=== PATIENT | female | born 1965 ===

== ENCOUNTER → 2020-09-08 | Outpatient (CLI) | payer BC ==
--- NOTE | 2020-09-08 09:41 | XR ---
EXAMINATION TYPE: XR chest 2V DATE OF EXAM: 09/08/2020 COMPARISON: NONE HISTORY: Chest pressure for one month TECHNIQUE: Frontal and lateral views of the chest are obtained. FINDINGS: Heart size is within normal limits. Low lung volumes. Elevation of the right hemidiaphragm is asymmetric. No pleural effusion, focal consolidation or pneumothorax. Mild degenerative changes o f thoracic spine. IMPRESSION: 1. No acute pulmonary disease. 2. Asymmetric elevation of right hemidiaphragm.
== END | disposition home or self-care (01) ==
LOC: RADXRMAIN 09:18
PROVIDERS: ATTEND Physician Assistant Medical
DX: R07.9 Chest pain, unspecified (principal)
CPT/HCPCS: 71046

== ENCOUNTER → 2020-10-02 | Outpatient (CLI) | payer BC ==
--- NOTE | 2020-10-02 12:56 | EST ---
EXERCISE STRESS DATE OF SERVICE: October 02, 2020 AGE: 55 SEX: F HT: @@ WT: @@ PROTOCOL: @@ STAGE: @@ DURATION OF EXERCISE: @@ HEART RATE REST: @@ BLOOD PRESSURE REST: @@ MAXIMUM HEART RATE ACHIEVED: @@ MAXIMUM BLOOD PRESSURE: @@ 85% MPHR: @@ 100% MPHR: @@ METS: @@ STRESS DATA: Heart rate is 83, pressure is 185/65 mmHg. Baseline EKG showed sinus mechanism. The patient exercised on the treadmill according to [place] protocol for a total of 4 minutes and achieved 5.6 METS. Max heart rate was 157, which is about 96% of maximum predicted heart rate and maximum blood pressure was 164/54 mmHg. Clinically, the patient did not have any symptoms and the EKG did not show any significant ST or T-wave abnormalities concerning for ischemia. CONCLUSION: 1. Average exercise tolerance. 2. Normal EKG in response to exercise. 3. Please follow up on the Cardiolite portion on a separate report from Radiology Department. MMODL / IJN: [id number] /
--- NOTE | 2020-10-05 09:18 | NM ---
EXAMINATION TYPE: NM stress cardiolite complete DATE OF EXAM: 10/02/2020 COMPARISON: NONE HISTORY: 55-year-old female R07.9, chest pain. TECHNIQUE: After the intravenous administration of 9.7 mCi Tc 99m Sestamibi - Rest images obtained 4 5 minutes post injection. The patient exercised using a JOANA protocol and 1 minute prior to peak e xercise was injected with 25.5 mCi Tc 99m Sestamibi - Stress images obtained 20 minutes post injectio n. FINDINGS: Targeted heart rate (139 BPM) was achieved during performance of the study (157 BPM achieved). Total exercise time 4 minutes. The technologist recorded some dizziness during the exercise stress and PVCs . Review of stress and rest SPECT images demonstrates large perfusion defect along the lateral wall whi ch is more pronounced on the rest images. Some possible reversibility along the mid and basal anterio r wall is not corroborated on the polar maps. Gated analysis shows relatively preserved wall motion w ith an estimated left ventricular ejection fraction of 71 %. TID is calculated at 0.81, within enrico l limits. IMPRESSION: Large fixed defect laterally is larger on rest suggesting extensive attenuation artifact. Clinically correlate to exclude a history of prior infarct. Apparent reversibility along the mid to basal anteri or wall is not corroborated on polar maps and may represent an additional area of attenuation artifac t. Given this limitation, if clinically indicated, further workup can be considered.
== END | disposition home or self-care (01) ==
LOC: RADNMMAIN 09-28 08:12
PROVIDERS: ATTEND Family Medicine
DX: R07.9 Chest pain, unspecified (principal); I10 Essential (primary) hypertension; E11.65 Type 2 diabetes mellitus with hyperglycemia
CPT/HCPCS: 93017; 78452; A9500

== ENCOUNTER 2023-08-26 07:42 | Inpatient (IN) | payer BC, MEDICARE ==
--- NOTE | 2023-08-26 08:09 | ED ---
General Adult HPI - General Chief complaint: Neuro Symptoms/Deficit Stated complaint: left side weakness, confusion Time Seen by Provider: 08/26/23 07:59 Source: patient, RN notes reviewed Mode of arrival: ambulatory Limitations: no limitations - History of Present Illness Initial comments: Patient is a 58-year-old female presenting to the emergency department with concern for confusion and left-sided weakness. Last known well was 9 PM yesterday. Patient did have some difficulty using her timecard at work. Patient has been told her speech is slurred and she does feel this way. Patient feels some left leg and left arm weakness. No history of similar symptoms previously. Symptoms have persisted - Related Data Home Medications Medication Instructions Recorded Confirmed Acetaminophen [Tylenol] 325 mg PO Q4H PRN 11/19/15 11/19/15 Atorvastatin [Lipitor] 20 mg PO Q72H 11/19/15 11/19/15 Empagliflozin/Linagliptin 1 each PO DAILY 11/19/15 11/19/15 [Glyxambi 25 mg-5 mg Tablet] Evening Pandora Oil 500 mg PO DAILY 11/19/15 11/19/15 Gabapentin [Neurontin] 100 - 200 mg PO AC-BRKFST 11/19/15 11/19/15 Gabapentin [Neurontin] 200 - 300 mg PO HS 11/19/15 11/19/15 Ibuprofen [Motrin] 200 - 400 mg PO Q6HR PRN 11/19/15 11/19/15 Losartan [Cozaar] 100 mg PO DAILY 11/19/15 11/19/15 Omeprazole 20 mg PO BID 11/19/15 11/19/15 Ubidecarenone [Co Q-10] 100 mg PO DAILY 11/19/15 11/19/15 Venlafaxine HCl [Effexor] 150 mg PO BID 11/19/15 11/19/15 Allergies Allergy/AdvReac Type Severity Reaction Status Date / Time No Known Allergies Allergy Verified 11/19/15 15:46 Review of Systems ROS Statement: Those systems with pertinent positive or pertinent negative responses have been documented in the HPI. ROS Other: All systems not noted in ROS Statement are negative. Constitutional: Denies: fever Eyes: Denies: eye pain ENT: Denies: ear pain Respiratory: Denies: cough Cardiovascular: Denies: chest pain Endocrine: Denies: fatigue Gastrointestinal: Denies: abdominal pain Genitourinary: Denies: dysuria Neurological: Reports: as per HPI, weakness, confusion. Denies: headache Past Medical History Past Medical History: Diabetes Mellitus, GERD/Reflux, Hyperlipidemia, Hypertension, Sleep Apnea/CPAP/BIPAP Additional Past Medical History / Comment(s): urinary stress incontinence History of Any Multi-Drug Resistant Organisms: None Reported Past Surgical History: Appendectomy, Heart Catheterization, Orthopedic Surgery, Tonsillectomy Additional Past Surgical History / Comment(s): rt shoulder arthroscopic, rt foot surgery for plantar facitis Past Anesthesia/Blood Transfusion Reactions: Previous Problems w/ Anesthesia Additional Past Anesthesia/Blood Transfusion Reaction / Comment(s): slow to wake up Past Psychological History: Anxiety, Depression Past Alcohol Use History: Daily Past Drug Use History: None Reported - Past Family History Mother Family Medical History: Coronary Artery Disease (CAD) Brother(s) Family Medical History: Cancer, Coronary Artery Disease (CAD) Additional Family Medical History / Comment(s): bone cancer General Exam Limitations: no limitations General appearance: alert, in no apparent distress Head exam: Present: atraumatic Eye exam: Present: normal appearance, PERRL, EOMI ENT exam: Present: normal oropharynx Neck exam: Present: normal inspection Respiratory exam: Present: normal lung sounds bilaterally Cardiovascular Exam: Present: regular rate, normal rhythm GI/Abdominal exam: Present: soft. Absent: tenderness Extremities exam: Present: normal inspection Neurological exam: Present: alert, oriented X3, CN II-XII intact Expanded Neurological exam: Present: protecting the airway, other (Questionable mild slurred speech) Patient oriented to: Present: person, place, time Cranial nerves: EOM's Intact: Normal, Facial Sensation: Normal Cerebellar function: Finger to Nose: Normal, Heel to Hanks: Abnormal Left Sensory exam: Upper Extremity Light Touch: Normal, Lower Extremity Light Touch: Normal Motor strength exam: RUE: 5, LUE: 5, RLE: 5, LLE: 5 Eye Response: (4) open spontaneously Motor Response: (6) obeys commands Verbal Response: (5) oriented Psychiatric exam: Present: normal affect, normal mood Skin exam: Present: normal color Course Vital Signs 08/26/23 07:53 Temperature 97.6 F Pulse Rate 83 Respiratory 18 Rate Blood Pressure 122/52 O2 Sat by Pulse 98 Oximetry - Reevaluation(s) Reevaluation #1: 08/26/23 08:18 Case was discussed with Dr. Teresa who agrees with plan of care and agrees patient is not a tPA candidate. EKG Findings - EKG Results: EKG: interpreted by ERMD, sinus rhythm, normal axis, normal QRS, normal ST/T Medical Decision Making - Medical Decision Making Not considered a tPA candidate secondary to onset of symptoms, last known well is greater than 4.5 hours. Risks are felt to outweigh the benefits Was pt. sent in by a medical professional or institution (, PA, LEAD JAVA J2EE DEVELOPER, urgent care, hospital, or assisted...) When possible be specific @ -No Did you speak to anyone other than the patient for history (EMS, parent, family, police, friend...)? What history was obtained from this source @ -Family is present and helps confirm slurred speech Did you review nursing and triage notes (agree or disagree)? Why? @ -I reviewed and agree with nursing and triage notes Were old charts reviewed (outside hosp., previous admission, EMS record, old EKG, old radiological studies, urgent care reports/EKG's, assisted records)? Report findings @ -No old charts were reviewed Differential Diagnosis (chest pain, altered mental status, abdominal pain women, abdominal pain men, vaginal bleeding, weakness, fever, dyspnea, syncope, headache, dizziness, GI bleed, back pain, seizure, CVA, palpatations, mental health, musculoskeletal)? @ -Differential Weakness: Hypoglycemia, shock, sepsis, hyponatremia, anemia, infection, AK, ETOH, adverse medicine reaction, overdose, stroke, this is not meant to be an all-inclusive list. EKG interpreted by me (3pts min.). @ -As above X-rays interpreted by me (1pt min.). @ -Chest x-ray shows no acute process CT interpreted by me (1pt min.). @ -CT scan of the brain without acute abnormality U/S interpreted by me (1pt. min.). @ -None done What testing was considered but not performed or refused? (CT, X-rays, U/S, labs)? Why? @ -None What meds were considered but not given or refused? Why? @ -See above Did you discuss the management of the patient with other professionals (professionals i.e. , PA, LEAD JAVA J2EE DEVELOPER, lab, RT, psych nurse, social services designee, divorce lawyer, teacher, armored vehicle officer, case management manager)? Give summary @ -Case was discussed with Dr. Tavarez who will admit covering Dr. Seals Was smoking cessation discussed for >3mins.? @ -No Was critical care preformed (if so, how long)? @ -No Were there social determinants of health that impacted care today? How? (Homelessness, low income, unemployed, alcoholism, drug addiction, transportation, low edu. Level, literacy, decrease access to med. care, [facility], rehab)? @ -No Was there de-escalation of care discussed even if they declined (Discuss DNR or withdrawal of care, Hospice)? DNR status @ -No What co-morbidities impacted this encounter? (DM, HTN, Smoking, COPD, CAD, Cancer, CVA, ARF, Chemo, Hep., AIDS, mental health diagnosis, sleep apnea, morbid obesity)? @ -None Was patient admitted / discharged? Hospital course, mention meds given and route, prescriptions, significant lab abnormalities, going to OR and other pertinent info. @ -Patient presents with mild stroke symptoms. Patient has mild slurred speech and coordination problems with her left leg. CT scan unremarkable. Patient will be admitted with neuro consult. Admission orders written. Undiagnosed new problem with uncertain prognosis? @ -No Drug Therapy requiring intensive monitoring for toxicity (Heparin, Nitro, Insulin, Cardizem)? @ -No Were any procedures done? @ -No Diagnosis/symptom? @ -CVA Acute, or Chronic, or Acute on Chronic? @ -Acute Uncomplicated (without systemic symptoms) or Complicated (systemic symptoms)? @ -Default Side effects of treatment? @ -No Exacerbation, Progression, or Severe Exacerbation? @ -No Poses a threat to life or bodily function? How? (Chest pain, USA, AK, pneumonia, PE, COPD, DKA, ARF, appy, cholecystitis, CVA, Diverticulitis, Homicidal, Suicidal, threat to staff... and all critical care pts) @ -Threat to neurological function and life - Lab Data Result diagrams: 08/26/23 08:15 08/26/23 08:15 Lab Results 08/26/23 08/26/23 08/26/23 Range/Units 08:13 08:15 08:15 WBC 11.6 H (3.8-10.6) k/uL RBC 4.81 (3.80-5.40) m/uL Hgb 13.6 (11.4-16.0) gm/dL Hct 43.0 (34.0-46.0) % MCV 89.4 (80.0-100.0) fL MCH 28.3 (25.0-35.0) pg MCHC 31.7 (31.0-37.0) g/dL RDW 12.7 (11.5-15.5) % Plt Count 598 H (150-450) k/uL MPV 8.0 Neutrophils % 73 % Lymphocytes % 18 % Monocytes % 5 % Eosinophils % 1 % Basophils % 1 % Neutrophils # 8.4 H (1.3-7.7) k/uL Lymphocytes # 2.1 (1.0-4.8) k/uL Monocytes # 0.6 (0-1.0) k/uL Eosinophils # 0.1 (0-0.7) k/uL Basophils # 0.1 (0-0.2) k/uL PT 11.0 (10.0-12.5) sec INR 1.0 (<1.2) APTT 28.2 (22.0-30.0) sec Sodium (137-145) mmol/L Potassium (3.5-5.1) mmol/L Chloride (98-107) mmol/L Carbon Dioxide (22-30) mmol/L Anion Gap mmol/L BUN (7-17) mg/dL Creatinine (0.52-1.04) mg/dL Est GFR (CKD-EPI)AfAm (>60 ml/min/1.73 sqM) Est GFR (CKD-EPI)NonAf (>60 ml/min/1.73 sqM) Glucose (74-99) mg/dL POC Glucose (mg/dL) 279 H (70-110) mg/dL POC Glu Roof [employer] ID Soniya, Noy Calcium (8.4-10.2) mg/dL Total Bilirubin (0.2-1.3) mg/dL AST (14-36) U/L ALT (4-34) U/L Alkaline Phosphatase (38-126) U/L Creatine Kinase (30-135) U/L Total Protein (6.3-8.2) g/dL Albumin (3.5-5.0) g/dL 08/26/23 Range/Units 08:15 WBC (3.8-10.6) k/uL RBC (3.80-5.40) m/uL Hgb (11.4-16.0) gm/dL Hct (34.0-46.0) % MCV (80.0-100.0) fL MCH (25.0-35.0) pg MCHC (31.0-37.0) g/dL RDW (11.5-15.5) % Plt Count (150-450) k/uL MPV Neutrophils % % Lymphocytes % % Monocytes % % Eosinophils % % Basophils % % Neutrophils # (1.3-7.7) k/uL Lymphocytes # (1.0-4.8) k/uL Monocytes # (0-1.0) k/uL Eosinophils # (0-0.7) k/uL Basophils # (0-0.2) k/uL PT (10.0-12.5) sec INR (<1.2) APTT (22.0-30.0) sec Sodium 127 L (137-145) mmol/L Potassium 5.2 H (3.5-5.1) mmol/L Chloride 93 L (98-107) mmol/L Carbon Dioxide 25 (22-30) mmol/L Anion Gap 9 mmol/L BUN 21 H (7-17) mg/dL Creatinine 2.65 H (0.52-1.04) mg/dL Est GFR (CKD-EPI)AfAm 22 (>60 ml/min/1.73 sqM) Est GFR (CKD-EPI)NonAf 19 (>60 ml/min/1.73 sqM) Glucose 260 H (74-99) mg/dL POC Glucose (mg/dL) (70-110) mg/dL POC Glu [employer] ID Calcium 9.0 (8.4-10.2) mg/dL Total Bilirubin 0.5 (0.2-1.3) mg/dL AST 42 H (14-36) U/L ALT 45 H (4-34) U/L Alkaline Phosphatase 195 H (38-126) U/L Creatine Kinase 93 (30-135) U/L Total Protein 6.7 (6.3-8.2) g/dL Albumin 3.6 (3.5-5.0) g/dL Disposition Clinical Impression: Cerebrovascular accident (CVA) Disposition: ADMITTED IP TO THIS HOSP Is patient prescribed a controlled substance at d/c from ED?: No Referrals: Jeff Seals MD [Primary Care Provider] - 1-2 days Time of Disposition: 08:57
[2023-08-26 08:14] LABS: Glucose,Whole Blood 279 mg/dL (70-110)
--- NOTE | 2023-08-26 08:36 | CT ---
EXAMINATION TYPE: CT brain wo con DATE OF EXAM: 08/26/2023 COMPARISON: None INDICATION: garima leg weakness, dizziness and left arm and eye blurred vision. DLP: 1129.6 mGycm, Automated exposure control for dose reduction was used. CONTRAST: None CT of the brain is performed utilizing 3 mm thick sections through the posterior fossa and 3 mm thick sections through the remaining calvarium. Study is performed within 24 hours of arrival to the hosp ital. No abnormal hyperdensity is present to suggest an acute intracranial hemorrhage. No mass lesion is evident. No acute infarcts are evident. Ventricles and sulci are appropriate for the patient age. Paranasal sinuses and mastoid air cells within the [id number] are clear. IMPRESSION: 1. No acute intracranial process. Follow-up MRI can be performed as clinically indicated
[2023-08-26 08:41] LABS: ALT 45 U/L (4-34); AST 42 U/L (14-36); African American GFR (CKD) 22 (>60 ml/min/1.73 sqM); Albumin 3.6 g/dL (3.5-5.0); Alkaline Phosphatase 195 U/L (38-126); Anion Gap 9 mmol/L; Blood Urea Nitrogen 21 mg/dL (7-17); Carbon Dioxide 25 mmol/L (22-30); Chloride 93 mmol/L (98-107); Creatine Kinase 93 U/L (30-135); Glucose 260 mg/dL (74-99); Non-African American GFR(CKD) 19 (>60 ml/min/1.73 sqM); Potassium 5.2 mmol/L (3.5-5.1); Sodium 127 mmol/L (137-145); Total Bilirubin 0.5 mg/dL (0.2-1.3); Total Protein 6.7 g/dL (6.3-8.2)
--- NOTE | 2023-08-26 08:43 | XR ---
EXAMINATION TYPE: XR chest 2V DATE OF EXAM: 08/26/2023 COMPARISON: 09/08/2020 INDICATION: Altered mental status TECHNIQUE: Frontal and lateral views of the chest are obtained. FINDINGS: The heart size is normal. The pulmonary vasculature is normal. The lungs are clear. IMPRESSION: 1. No acute pulmonary process.
[2023-08-26 08:44] LABS: Basophils # (A) 0.1 k/uL (0-0.2); Basophils % (A) 1 %; Eosinophils # (A) 0.1 k/uL (0-0.7); Eosinophils % (A) 1 %; HGB 13.6 gm/dL (11.4-16.0); Lymphocytes # (A) 2.1 k/uL (1.0-4.8); Lymphocytes % (A) 18 %; MCH 28.3 pg (25.0-35.0); MCHC 31.7 g/dL (31.0-37.0); MCV 89.4 fL (80.0-100.0); Monocytes # (A) 0.6 k/uL (0-1.0); Monocytes % (A) 5 %; Neutrophils # (A) 8.4 k/uL (1.3-7.7); Neutrophils % (A) 73 %; Platelet Count 598 k/uL (150-450); RBC 4.81 m/uL (3.80-5.40); RDW 12.7 % (11.5-15.5); WBC 11.6 k/uL (3.8-10.6)
--- NOTE | 2023-08-26 08:50 | CT ---
EXAMINATION TYPE: CT angio head neck DATE OF EXAM: 08/26/2023 HISTORY: garima leg weakness, dizziness and left arm and eye blurred vision. COMPARISON: None CT DLP: 630.4 mGycm. Automated Exposure Control for Dose Reduction was Utilized. TECHNIQUE: CTA scan of the neck is performed with IV Contrast, patient injected with 65ml mL of Isov ue 370, axial images are obtained, coronal and sagittal reformatted images are reviewed. Three-D leodan nstructed images are created on an independent workstation and reviewed. Source images are reviewed. FINDINGS: Carotid/Vascular Structures: There is a 3 vessel arch. Common carotid arteries bifurcate into internal and external carotid arteries without significant blossom w limiting stenosis. Vertebral arteries are codominant. Internal carotid arteries and vertebral arteries are patent to the skull base. Cervical of [place]: Vertebral basilar system appears normal. Posterior cerebral vasculature is unrema rkable. Internal carotid arteries bifurcate normally into A1 and M1 segments. A2 segments are normal. The anterior communicating artery is patent. The right posterior communicating artery is patent. The left posterior communicating artery is small but patent. IMPRESSION: 1. No flow-limiting stenosis bilateral carotid bifurcations. 2. Normal [place] of [place] NASCET criteria was used in interpretation of this exam?
[2023-08-26 08:51] LABS: Partial Thromboplastin Time 28.2 sec (22.0-30.0)
[2023-08-26] MEDS: SODIUM CHLORIDE 0.9% 1,000 ML IV STA (08:59)
[2023-08-26] MEDS: ASPIRIN 325 MG TAB PO STA (09:06)
[2023-08-26] MEDS: SODIUM CHLORIDE 0.9% 1,000 ML IV SCH (09:06)
[2023-08-26] MEDS ORDERED: DEXTROSE 50% SYRINGE 50 ML IVP PRN ×2 (09:52)
--- NOTE | 2023-08-26 10:28 | P.HPIM ---
History of Present Illness H&P Date: 08/26/23 History of present illness; patient is a 58-year-old lady with past medical history significant for hypertension, hyperlipidemia, diabetes mellitus presented to the ER with complaint of confusion and left-sided weakness. According to EMR, last well-known was yesterday evening at 9 PM. 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 Patient was having weakness more pronounced on the left side. Patient also had a hard time saying words. Patient went to work this morning and people then noted that the patient was slurring her speech. Patient also was having weakness of left leg and arm. There was no complaint of facial droop. Patient was also having difficulty in using her timecard at work. Patient was also acting confused. There was no complaint of headache. Denies any palpitation. There was no complaint of any syncopal episode. No complaint of facial droop. Because of the symptoms, mattie choudhary brought to the ER Initial lab work done in the ER showed WBC 11.6, hemoglobin 13.6, platelet count 598, sodium 127, potassium 5.2, BUN 21, creatinine 2.65, glucose 260 AST 42, ALT 45, alk phos 195 EKG done in the ER showed heart rate of 77, no ST segment elevation or depression seen, no T-wave inversions seen. Chest x-ray done in the ER no acute pulmonary process CT head done showed no acute intracranial process CTA head and neck done showed no significant stenosis, aneurysm or thrombus in the intracranial circulation Patient admitted to internal medicine service REVIEW OF SYSTEMS: CONSTITUTIONAL: No fever, no malaise, no fatigue. HEENT: No recent visual problems or hearing problems. Denied any sore throat. CARDIOVASCULAR: No chest pain, orthopnea, PND, no palpitations, no syncope. PULMONARY: No shortness of breath, no cough, no hemoptysis. GASTROINTESTINAL: No diarrhea, no nausea, no vomiting, no abdominal pain. NEUROLOGICAL: As mentioned above HEMATOLOGICAL: Denies any bleeding or petechiae. GENITOURINARY: Denies any burning micturition, frequency, or urgency. MUSCULOSKELETAL/RHEUMATOLOGICAL: Denies any joint pain, swelling, or any muscle pain. ENDOCRINE: Denies any polyuria or polydipsia. The rest of the 14-point review of systems is negative. PHYSICAL EXAMINATION: GENERAL: The patient is alert and oriented x3, not in any acute distress. Well developed, well nourished. HEENT: Pupils are round and equally reacting to light. EOMI. No scleral icterus. No conjunctival pallor. Normocephalic, atraumatic. No pharyngeal erythema. No thyromegaly. CARDIOVASCULAR: S1 and S2 present. No murmurs, rubs, or gallops. PULMONARY: Chest is clear to auscultation, no wheezing or crackles. ABDOMEN: Soft, nontender, nondistended, normoactive bowel sounds. No palpable organomegaly. MUSCULOSKELETAL: No joint swelling or deformity. EXTREMITIES: No cyanosis, clubbing, or pedal edema. NEUROLOGICAL: Muscle strength is 3 x 5 in left side and 5 x 5 in right side. Cranial nerves 2-12 intact SKIN: No rashes. Assessment and plan Acute CVA Hyponatremia Hyperkalemia Acute kidney injury Hypertension Hyperlipidemia Diabetes mellitus Monitor vital signs Monitor CBC Monitor CMP Continue telemetry monitoring Continue neurochecks Ordered 2D echo Ordered ultrasound of kidneys Ordered urine lites Hold blood pressure medications, allow permissive hypertension for the first 48 hours Monitor blood sugar levels, continue sliding scale insulin. Hold off metformin and glipizide because of acute kidney injury Continue IV fluids Resume home meds Consult neurology Consult nephrology Labs and medication were reviewed.. Continue same treatment. Continue with symptomatic treatment. Resume home medication. Monitor labs and vitals. DVT and GI prophylaxis. Further recommendations as per clinical course of the patient Dictation was produced using [employer] dictation software. please excuse any grammatical, word or spelling errors. Past Medical History Past Medical History: Diabetes Mellitus, GERD/Reflux, Hyperlipidemia, H ypertension, Sleep Apnea/CPAP/BIPAP Additional Past Medical History / Comment(s): urinary stress incontinence History of Any Multi-Drug Resistant Organisms: None Reported Past Surgical History: Appendectomy, Heart Catheterization, Orthopedic Surgery, Tonsillectomy Additional Past Surgical History / Comment(s): rt shoulder arthroscopic, rt foot surgery for plantar facitis Past Anesthesia/Blood Transfusion Reactions: Previous Problems w/ Anesthesia Additional Past Anesthesia/Blood Transfusion Reaction / Comment(s): slow to wake up Past Psychological History: Anxiety, Depression Past Alcohol Use History: Daily Past Drug Use History: None Reported - Past Family History Mother Family Medical History: Coronary Artery Disease (CAD) Brother(s) Family Medical History: Cancer, Coronary Artery Disease (CAD) Additional Family Medical History / Comment(s): bone cancer Medications and Allergies Home Medications Medication Instructions Recorded Confirmed Type Atorvastatin [Lipitor] 20 mg PO DAILY 11/19/15 08/26/23 History Omeprazole 20 mg PO BID 11/19/15 08/26/23 History Losartan Potassium 100 mg PO DAILY 08/26/23 08/26/23 History Metoprolol Succinate [Metoprolol 25 mg PO HS 08/26/23 08/26/23 History Succinate ER] Pregabalin [Lyrica] 150 mg PO BID 08/26/23 08/26/23 History Tirzepatide [Mounjaro] 7.5 mg SQ BISWAS 08/26/23 08/26/23 History Venlafaxine HCl [Effexor XR] 150 mg PO DAILY 08/26/23 08/26/23 History glipiZIDE [Glucotrol] 5 mg PO AC-BID 08/26/23 08/26/23 History metFORMIN HCL 1,000 mg PO HS 08/26/23 08/26/23 History Allergies Allergy/AdvReac Type Severity Reaction Status Date / Time No Known Allergies Allergy Verified 08/26/23 09:07 Physical Exam Vitals: Vital Signs Temp Pulse Resp BP Pulse Ox 08/26/23 07:53 97.6 F 83 18 122/52 98 Intake and Output 08/25/23 08/26/23 08/26/23 22:59 06:59 14:59 Other: Weight 90.718 kg Results CBC & Chem 7: 08/26/23 08:15 08/26/23 08:15 Labs: Abnormal Lab Results - Last 24 Hours (Table) 08/26/23 08/26/23 08/26/23 Range/Units 08:13 08:15 08:15 WBC 11.6 H (3.8-10.6) k/uL Plt Count 598 H (150-450) k/uL Neutrophils # 8.4 H (1.3-7.7) k/uL Sodium 127 L (137-145) mmol/L Potassium 5.2 H (3.5-5.1) mmol/L Chloride 93 L (98-107) mmol/L BUN 21 H (7-17) mg/dL Creatinine 2.65 H (0.52-1.04) mg/dL Glucose 260 H (74-99) mg/dL POC Glucose (mg/dL) 279 H (70-110) mg/dL AST 42 H (14-36) U/L ALT 45 H (4-34) U/L Alkaline Phosphatase 195 H (38-126) U/L
[2023-08-26 11:57] LABS: Glucose,Whole Blood 168 mg/dL (70-110)
--- NOTE | 2023-08-26 11:57 | US ---
EXAMINATION TYPE: US kidneys/renal and bladder DATE OF EXAM: 08/26/2023 COMPARISON: NONE CLINICAL INDICATION: Female, 58 years old with history of Nimo; NIMO EXAM MEASUREMENTS: Right Kidney: 10.8 x 6.5 x 5.5 cm Left Kidney: 11.0 x 4.9 x 4.2 cm Right Kidney: no evidence of hydronephrosis Left Kidney: no evidence of hydronephrosis Bladder: wnl Bilateral Jets seen: no IMPRESSION: 1. Normal renal ultrasound
[2023-08-26] MEDS: INSULIN ASPART (NovoLOG) 100 UNIT/ML VIAL SQ SCH (12:47)
--- NOTE | 2023-08-26 13:03 | P.NPCON ---
History of Present Illness - Reason for Consult acute renal failure - History of Present Illness patient is a 58-year-old female with previous history of hypertension, type 2 diabetes, hyperlipidemia who was admitted to the hospital with complaints of left-sided weakness and visual changes in the left eye. No history of dizziness or lightheadedness. CT angiogram was negative. No previous history of kidney diseases. Serum creatinine was 2.6 on admission. Patient denies use of any nonsteroidal anti-inflammatory agents. Blood pressure was slightly on the lower side with systolic in the 120s. Patient is maintained on angiotensin receptor blockers which are currently on hold. No urinary symptoms. Review of Systems as per HPI Past Medical History Past Medical History: Diabetes Mellitus, GERD/Reflux, Hyperlipidemia, Hypertension, Sleep Apnea/CPAP/BIPAP Additional Past Medical History / Comment(s): urinary stress incontinence History of Any Multi-Drug Resistant Organisms: None Reported Past Surgical History: Appendectomy, Heart Catheterization, Orthopedic Surgery, Tonsillectomy Additional Past Surgical History / Comment(s): rt shoulder arthroscopic, rt foot surgery for plantar facitis Past Anesthesia/Blood Transfusion Reactions: Previous Problems w/ Anesthesia Additional Past Anesthesia/Blood Transfusion Reaction / Comment(s): slow to wake up Past Psychological History: Anxiety, Depression Past Alcohol Use History: Daily Past Drug Use History: None Reported - Past Family History Mother Family Medical History: Coronary Artery Disease (CAD) Brother(s) Family Medical History: Cancer, Coronary Artery Disease (CAD) Additional Family Medical History / Comment(s): bone cancer Medications and Allergies Home Medications Medication Instructions Recorded Confirmed Type Atorvastatin [Lipitor] 20 mg PO DAILY 11/19/15 08/26/23 History Omeprazole 20 mg PO BID 11/19/15 08/26/23 History Losartan Potassium 100 mg PO DAILY 08/26/23 08/26/23 History Metoprolol Succinate [Metoprolol 25 mg PO HS 08/26/23 08/26/23 History Succinate ER] Pregabalin [Lyrica] 150 mg PO BID 08/26/23 08/26/23 History Tirzepatide [Mounjaro] 7.5 mg SQ BISWAS 08/26/23 08/26/23 History Venlafaxine HCl [Effexor XR] 150 mg PO DAILY 08/26/23 08/26/23 History glipiZIDE [Glucotrol] 5 mg PO AC-BID 08/26/23 08/26/23 History metFORMIN HCL 1,000 mg PO HS 08/26/23 08/26/23 History Allergies Allergy/AdvReac Type Severity Reaction Status Date / Time No Known Allergies Allergy Verified 08/26/23 09:07 Physical Exam Vitals: Vital Signs Temp Pulse Resp BP Pulse Ox 08/26/23 11:13 76 16 130/65 96 08/26/23 07:53 97.6 F 83 18 122/52 98 Intake and Output 08/25/23 08/26/23 08/26/23 22:59 06:59 14:59 Other: Weight 90.718 kg patient is awake, comfortable, no acute distress Examination of the heart S1 and S2 Examination of the lungs bilateral breath sounds are heard Abdomen is soft nontender Examination lower extremity shows no significant edema GENERAL MAGISTRATE exam grossly intact Results - Lab Results Most recent lab results Calcium 9.0 mg/dL (8.4-10.2) 08/26/23 08:15 08/26/23 08:15 08/26/23 08:15 Assessment and Plan Assessment: 1. Acute kidney injury most likely ATN currently nonoliguric. Continue with IV fluids. Agree with holding angiotensin receptor blockers. check UA. 2. Hyponatremia most likely hypovolemic currently maintained on saline. 3. Left arm weakness rule out CVA. neurology on consult. 4. History of hypertension Plan: continue with normal saline Agree with holding angiotensin receptor blockers. Repeat labs in a.m. Check UA Check ultrasound of the kidneys Thank you for the consultation. We will continue to follow the patient with you during her hospitalization.
[2023-08-26 13:28] LABS: Appearance,Urine Cloudy (Clear); Bacteria,Urine Many /hpf; Bilirubin,Urine Negative (Negative); Blood,Urine Negative (Negative); Color,Urine Colorless; Glucose,Urine (UA) 1+ (Negative); Ketones,Urine Negative (Negative); Leukocyte Esterase,Urine Small (Negative); Mucus,Urine Rare /hpf; Nitrite,Urine Positive (Negative); PH, Urine 5.5 (5.0-8.0); Protein,Urine Negative (Negative); RBC,Urine <1 /hpf (0-5); Specific Gravity,Urine 1.012 (1.001-1.035); Squamous Epithelial Cell,Urine 8 /hpf (0-4); Urobilinogen,Urine <2.0 mg/dL (<2.0); WBC,Urine 9 /hpf (0-5)
--- NOTE | 2023-08-26 13:49 | P.CNNES ---
History of Present Illness Consult date: 08/26/23 Requesting physician: Nabor Segovia Reason for Consult: cva History of Present Illness: This is a 58-year-old woman who presented emergency department because of left- sided weakness, left arm numbness, dizziness, confusion. 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 Her last normal state was at 10am yesterday. She went to work even though she had some symptoms and felt send could not operate the machine with the right hand and she felt off. She stated that she was having difficulty getting her words out and again her concentration is off. She does have underlying history of diabetes, hypertension. She smokes half a pack a day. She rarely drinks alcohol. She denies any history of stroke or TIAs in the past. She is not on any antiplatelet. Stated she was notified that her diabetes is not well-controlled and she is can to be switched to insulin for management of her diabetes. Some of the workup during this hospital visit consisted of: Sodium is 127, potassium is 5.2, creatinine is 2.65. Initial serum glucose is 260. Potassium is 5.2 CT of the head is reported as no acute intracranial process. I personally reviewed CT and agree with the report. CTA head and neck is reported as no limiting stenosis bilateral carotid bifurcation. Normal [place] of [place]. Review of Systems The positive and negative as per HPI. Past Medical History Past Medical History: Diabetes Mellitus, GERD/Reflux, Hyperlipidemia, Hypertension, Sleep Apnea/CPAP/BIPAP Additional Past Medical History / Comment(s): urinary stress incontinence History of Any Multi-Drug Resistant Organisms: None Reported Past Surgical History: Appendectomy, Heart Catheterization, Orthopedic Surgery, Tonsillectomy Additional Past Surgical History / Comment(s): rt shoulder arthroscopic, rt foot surgery for plantar facitis Past Anesthesia/Blood Transfusion Reactions: Previous Problems w/ Anesthesia Additional Past Anesthesia/Blood Transfusion Reaction / Comment(s): slow to wake up Past Psychological History: Anxiety, Depression Past Alcohol Use History: Daily Past Drug Use History: None Reported - Past Family History Mother Family Medical History: Coronary Artery Disease (CAD) Brother(s) Family Medical History: Cancer, Coronary Artery Disease (CAD) Additional Family Medical History / Comment(s): bone cancer Medications and Allergies Home Medications Medication Instructions Recorded Confirmed Type Atorvastatin [Lipitor] 20 mg PO DAILY 11/19/15 08/26/23 History Omeprazole 20 mg PO BID 11/19/15 08/26/23 History Losartan Potassium 100 mg PO DAILY 08/26/23 08/26/23 History Metoprolol Succinate [Metoprolol 25 mg PO HS 08/26/23 08/26/23 History Succinate ER] Pregabalin [Lyrica] 150 mg PO BID 08/26/23 08/26/23 History Tirzepatide [Mounjaro] 7.5 mg SQ BISWAS 08/26/23 08/26/23 History Venlafaxine HCl [Effexor XR] 150 mg PO DAILY 08/26/23 08/26/23 History glipiZIDE [Glucotrol] 5 mg PO AC-BID 08/26/23 08/26/23 History metFORMIN HCL 1,000 mg PO HS 08/26/23 08/26/23 History Allergies Allergy/AdvReac Type Severity Reaction Status Date / Time No Known Allergies Allergy Verified 08/26/23 09:07 Physical Examination - Vital Signs Vital Signs: Vital Signs Temp Pulse Resp BP Pulse Ox 08/26/23 13:08 73 16 131/72 97 08/26/23 11:13 76 16 130/65 96 08/26/23 07:53 97.6 F 83 18 122/52 98 Intake and Output 08/25/23 08/26/23 08/26/23 22:59 06:59 14:59 Other: Weight 90.718 kg GENERAL: The patient is lying in bed and is not in acute distress. NEUROLOGICAL: Higher mental function: The patient is awake, alert, oriented to self, place and time. Patient is following commands. No aphasia and no neglect. Cranial nerves: The pupils are round, equal and reactive to light and accommodation. Visual colin are full to confrontation throughout. Extraocular movement is intact no nystagmus is noted. Facial sensation is normal to touch throughout. Has scar that is old on right side of forehead. The facial strength is left nasolabial flattening and patient stated old. Hearing is normal garima aterally to hand rub. Tongue is midline and moved [id number] without any difficulty. No dysarthria is noted. Shoulder shrug is normal bilaterally. Motor: The strength is left forearm flexion is 4+ to 5- and left knee extension is 4+ to 5-. Otherwise rest are 5/5. Normal tone and bulk. Cerebellum: Normal finger to nose bilaterally. Sensation: Sensation is normal to touch throughout. Reflexes (right/left):2+ throughout. Plantars are downgoing bilaterally. Results - Laboratory Findings CBC and BMP: 08/26/23 08:15 08/26/23 08:15 Abnormal Lab Findings: Abnormal Labs 08/26/23 08/26/23 08/26/23 08:13 08:15 08:15 WBC 11.6 H Plt Count 598 H Neutrophils # 8.4 H Sodium 127 L Potassium 5.2 H Chloride 93 L BUN 21 H Creatinine 2.65 H Glucose 260 H POC Glucose (mg/dL) 279 H AST 42 H ALT 45 H Alkaline Phosphatase 195 H 08/26/23 11:56 WBC Plt Count Neutrophils # Sodium Potassium Chloride BUN Creatinine Glucose POC Glucose (mg/dL) 168 H AST ALT Alkaline Phosphatase Assessment and Plan Assessment: This is a 58-year-old woman who presents emergency department since she woke up yesterday at 9 PM with left sided weakness left arm numbness left blurry vision dizziness, speech difficulty and confusion. Acute left-sided weakness numbness left blurry vision and speech difficulty. Confusion seems due to acute ischemic stroke. No IV thrombolytic since outside window and risk outweigh benefit Diabetes mellitus and seems uncontrolled Hyponatremia Hypokalemia Kidney Insufficiency and unsure if acute or chronic History of hypertension Tobacco use Plan: Patient was given aspirin 325 once then 1 started on 325 mg daily. Prior to this she was not on any antiplatelet. I also started the patient on Plavix 75 mg daily. She was started on Lipitor 20 mg daily and I change it to 40 mg daily I ordered MRI of the brain 2D echo, lipid panel, hemoglobin A1c were ordered and is pending IF MRI of the brain is negative for any stroke then we will obtain routine EEG Continue neurochecks Cardiac monitoring PT OT and BR[employer] H[employer]DER [employer]BLER are consulted Patient was counseled on tobacco cessation Will defer the rest of the medical management to primary and other specialist For DVT prophylaxis I started the patient on subcu heparin 5000 units every 12 hours I discussed plan with the patient Thank you for the consultation. Time with Patient: Greater than 30
[2023-08-26] MEDS: HEPARIN SODIUM,PORCINE 5,000 UNIT/ML 1 ML VIAL SQ SCH (13:59)
[2023-08-26] MEDS: CLOPIDOGREL 75 MG TAB PO SCH (13:59)
[2023-08-26 17:04] LABS: Glucose,Whole Blood 271 mg/dL (70-110)
[2023-08-26] MEDS ORDERED: glipiZIDE 5 MG TAB PO SCH (17:30)
[2023-08-26 20:12] LABS: Glucose,Whole Blood 298 mg/dL (70-110)
[2023-08-26] MEDS: PREGABALIN 75 MG CAP PO SCH (20:35)
[2023-08-26] MEDS: PANTOPRAZOLE 40 MG TABLET PO SCH (20:35)
[2023-08-26] MEDS: METOPROLOL SUCCINATE (ER) 25 MG TAB.ER.24H PO SCH (20:35)
[2023-08-26] MEDS ORDERED: metFORMIN 500 MG TAB PO SCH (21:00)
[2023-08-27 07:49] LABS: Glucose,Whole Blood 349 mg/dL (70-110)
[2023-08-27] MEDS: ATORVASTATIN 20 MG TAB PO SCH (08:43)
[2023-08-27] MEDS: ASPIRIN 325 MG TAB PO SCH (08:43)
[2023-08-27] MEDS: VENLAFAXINE HCL ER 150 MG CAP PO SCH (08:44)
[2023-08-27] MEDS ORDERED: LOSARTAN 50 MG TAB PO SCH (09:00)
[2023-08-27] MEDS ORDERED: ATORVASTATIN 20 MG TAB PO SCH (09:00)
[2023-08-27 09:20] LABS: Chol/HDL Ratio 3.58 Ratio; LDL Cholesterol,Calculated 42.3 mg/dL (0.0-131.0)
[2023-08-27 09:48] LABS: Creatinine,Urine Random 37.7 mg/dL (28.0-217.0)
[2023-08-27 10:11] LABS: Basophils # (A) 0.1 k/uL (0-0.2); Basophils % (A) 1 %; Eosinophils # (A) 0.1 k/uL (0-0.7); Eosinophils % (A) 1 %; HCT 41.4 % (34.0-46.0); HGB 13.1 gm/dL (11.4-16.0); Lymphocytes # (A) 1.6 k/uL (1.0-4.8); Lymphocytes % (A) 17 %; MCH 28.6 pg (25.0-35.0); MCHC 31.7 g/dL (31.0-37.0); MCV 90.2 fL (80.0-100.0); Monocytes # (A) 0.4 k/uL (0-1.0); Monocytes % (A) 4 %; Neutrophils # (A) 7.1 k/uL (1.3-7.7); Neutrophils % (A) 76 %; Platelet Count 484 k/uL (150-450); RBC 4.59 m/uL (3.80-5.40); RDW 12.8 % (11.5-15.5); WBC 9.3 k/uL (3.8-10.6)
[2023-08-27 10:29] LABS: ALT 34 U/L (4-34); AST 32 U/L (14-36); African American GFR (CKD) 33 (>60 ml/min/1.73 sqM); Albumin 3.4 g/dL (3.5-5.0); Albumin/Globulin Ratio 1.2; Alkaline Phosphatase 174 U/L (38-126); Anion Gap 7 mmol/L; Blood Urea Nitrogen 25 mg/dL (7-17); Calcium 9.1 mg/dL (8.4-10.2); Carbon Dioxide 23 mmol/L (22-30); Chloride 99 mmol/L (98-107); Globulin 2.9 g/dL; Glucose 314 mg/dL (74-99); Non-African American GFR(CKD) 28 (>60 ml/min/1.73 sqM); Potassium 5.7 mmol/L (3.5-5.1); Sodium 129 mmol/L (137-145); Total Bilirubin 0.3 mg/dL (0.2-1.3); Total Protein 6.3 g/dL (6.3-8.2)
[2023-08-27 12:06] LABS: Glucose,Whole Blood 372 mg/dL (70-110)
[2023-08-27] MEDS: DEXTROSE 50% SYRINGE 50 ML IVP STA (12:20)
[2023-08-27] MEDS: INSULIN REGULAR 100 UNIT/ML VIAL (IV) IV ONE (12:21)
[2023-08-27] MEDS: LACTULOSE 20 GM/30 ML CUP PO STA (12:22)
--- NOTE | 2023-08-27 12:55 | P.PN ---
Subjective patient is seen for follow-up for acute kidney injury. Renal function is improved with IV hydration. No evidence of obstruction noted on ultrasound. Potassium is staying on the high side. Blood sugars have been elevated at 372. Vision is slightly better and left-sided weakness has also improved per patient. Objective - Vital Signs Vital signs: Vital Signs Temp 97.8 F 08/26/23 16:20 Pulse 78 08/27/23 12:24 Resp 18 08/27/23 12:24 BP 139/70 08/27/23 12:24 Pulse Ox 96 08/27/23 12:24 FiO2 Intake & Output 08/26/23 08/27/23 08/27/23 18:59 06:59 18:59 Weight 90.718 kg Other: Voiding Method Toilet - Exam patient is awake, comfortable, no acute distress Examination of the heart S1 and S2 Examination of the lungs bilateral breath sounds are heard Abdomen is soft nontender Examination lower extremity shows no significant edema [employer] exam grossly intact - Labs CBC & Chem 7: 08/27/23 09:57 08/27/23 09:57 Labs: Abnormal Lab Results - Last 24 Hours (Table) 08/26/23 08/26/23 08/26/23 Range/Units 11:43 11:43 17:02 Plt Count (150-450) k/uL Sodium (137-145) mmol/L Potassium (3.5-5.1) mmol/L BUN (7-17) mg/dL Creatinine (0.52-1.04) mg/dL Glucose (74-99) mg/dL POC Glucose (mg/dL) 271 H (70-110) mg/dL Hemoglobin A1c (<=6.0) % Alkaline Phosphatase (38-126) U/L Albumin (3.5-5.0) g/dL Triglycerides (0.00-149.00) mg/dL VLDL Cholesterol, Calc (5.00-40.00) mg/dL HDL Cholesterol (40.00-60.00) mg/dL Urine Appearance Cloudy H (Clear) Urine Glucose (UA) 1+ H (Negative) Urine Nitrite Positive H (Negative) Ur Leukocyte Esterase Small H (Negative) Urine WBC 9 H (0-5) /hpf Ur Squamous Epith Cells 8 H (0-4) /hpf Urine Bacteria Many H (None) /hpf Urine Mucus Rare H (None) /hpf Ur Random Sodium 20 L (40-220) mmol/L 08/26/23 08/27/23 08/27/23 Range/Units 20:10 05:56 05:56 Plt Count (150-450) k/uL Sodium (137-145) mmol/L Potassium (3.5-5.1) mmol/L BUN (7-17) mg/dL Creatinine (0.52-1.04) mg/dL Glucose (74-99) mg/dL POC Glucose (mg/dL) 298 H (70-110) mg/dL Hemoglobin A1c 9.8 H (<=6.0) % Alkaline Phosphatase (38-126) U/L Albumin (3.5-5.0) g/dL Triglycerides 257.00 H (0.00-149.00) mg/dL VLDL Cholesterol, Calc 51.40 H (5.00-40.00) mg/dL HDL Cholesterol 36.30 L (40.00-60.00) mg/dL Urine Appearance (Clear) Urine Glucose (UA) (Negative) Urine Nitrite (Negative) Ur Leukocyte Esterase (Negative) Urine WBC (0-5) /hpf Ur Squamous Epith Cells (0-4) /hpf Urine Bacteria (None) /hpf Urine Mucus (None) /hpf Ur Random Sodium (40-220) mmol/L 08/27/23 08/27/23 08/27/23 Range/Units 07:47 09:57 09:57 Plt Count 484 H (150-450) k/uL Sodium 129 L (137-145) mmol/L Potassium 5.7 H (3.5-5.1) mmol/L BUN 25 H (7-17) mg/dL Creatinine 1.91 H (0.52-1.04) mg/dL Glucose 314 H (74-99) mg/dL POC Glucose (mg/dL) 349 H (70-110) mg/dL Hemoglobin A1c (<=6.0) % Alkaline Phosphatase 174 H (38-126) U/L Albumin 3.4 L (3.5-5.0) g/dL Triglycerides (0.00-149.00) mg/dL VLDL Cholesterol, Calc (5.00-40.00) mg/dL HDL Cholesterol (40.00-60.00) mg/dL Urine Appearance (Clear) Urine Glucose (UA) (Negative) Urine Nitrite (Negative) Ur Leukocyte Esterase (Negative) Urine WBC (0-5) /hpf Ur Squamous Epith Cells (0-4) /hpf Urine Bacteria (None) /hpf Urine Mucus (None) /hpf Ur Random Sodium (40-220) mmol/L 08/27/23 Range/Units 12:04 Plt Count (150-450) k/uL Sodium (137-145) mmol/L Potassium (3.5-5.1) mmol/L BUN (7-17) mg/dL Creatinine (0.52-1.04) mg/dL Glucose (74-99) mg/dL POC Glucose (mg/dL) 372 H (70-110) mg/dL Hemoglobin A1c (<=6.0) % Alkaline Phosphatase (38-126) U/L Albumin (3.5-5.0) g/dL Triglycerides (0.00-149.00) mg/dL VLDL Cholesterol, Calc (5.00-40.00) mg/dL HDL Cholesterol (40.00-60.00) mg/dL Urine Appearance (Clear) Urine Glucose (UA) (Negative) Urine Nitrite (Negative) Ur Leukocyte Esterase (Negative) Urine WBC (0-5) /hpf Ur Squamous Epith Cells (0-4) /hpf Urine Bacteria (None) /hpf Urine Mucus (None) /hpf Ur Random Sodium (40-220) mmol/L Assessment and Plan Assessment: 1. Acute kidney injury most likely ATN currently nonoliguric. Continue with IV fluids. Agree with holding angiotensin receptor blockers. UA shows 1+ blood and WBCs 9, no protein. 2. Hyponatremia most likely hypovolemic currently maintained on saline and improved 3. Left arm weakness rule out CVA. neurology on consult. 4. History of hypertension 5. Hyperkalemia associated with acute kidney injury and hyperglycemia Plan: continue with normal saline Agree with holding angiotensin receptor blockers. Control blood sugars Repeat labs in a.m. check random cortisol level
[2023-08-27 13:21] LABS: Glucose,Whole Blood 227 mg/dL (70-110)
[2023-08-27] MEDS ORDERED: DEXTROSE 50% SYRINGE 50 ML IVP PRN ×2 (13:48)
--- NOTE | 2023-08-27 13:50 | P.PN ---
Subjective Progress Note Date: 08/27/23 patient is a 58-year-old lady with past medical history significant for hypertension, hyperlipidemia, diabetes mellitus presented to the ER with complaint of confusion and left-sided weakness. According to EMR, last well- known was yesterday evening at 9 PM. 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 Patient was having weakness more pronounced on the left side. Patient also had a hard time saying words. Patient went to work this morning and people then noted that the patient was slurring her speech. Patient also was having weakness of left leg and arm. There was no complaint of facial droop. Patient was also having difficulty in using her timecard at work. Patient was also acting confused. There was no complaint of headache. Denies any palpitation. There was no complaint of any syncopal episode. No complaint of facial droop. Because of the symptoms, patient brought to the ER Initial lab work done in the ER showed WBC 11.6, hemoglobin 13.6, platelet count 598, sodium 127, potassium 5.2, BUN 21, creatinine 2.65, glucose 260 AST 42, ALT 45, alk phos 195 EKG done in the ER showed heart rate of 77, no ST segment elevation or depression seen, no T-wave inversions seen. Chest x-ray done in the ER no acute pulmonary process CT head done showed no acute intracranial process CTA head and neck done showed no significant stenosis, aneurysm or thrombus in the intracranial circulation Patient admitted to internal medicine service 08/26. Patient seen and examined. States weakness of left side is improved. Blood sugars have been elevated, will start patient on Levemir. Neurology francesca luated the patient, ordered MRI brain and 2-D echo REVIEW OF SYSTEMS: CONSTITUTIONAL: No fever, no malaise,. CARDIOVASCULAR: No chest pain, no palpitations, no syncope. PULMONARY: No shortness of breath, no cough, GASTROINTESTINAL: No diarrhea, no nausea, no vomiting, no abdominal pain. NEUROLOGICAL: No headaches, no weakness, PHYSICAL EXAMINATION: GENERAL: The patient is alert and oriented x3, not in any acute distress. Well developed, well nourished. HEENT: Pupils are round and equally reacting to light. EOMI. No scleral icterus. No conjunctival pallor. Normocephalic, atraumatic. No pharyngeal erythema. No thyromegaly. CARDIOVASCULAR: S1 and S2 present. No murmurs, rubs, or gallops. PULMONARY: Chest is clear to auscultation, no wheezing or crackles. ABDOMEN: Soft, nontender, nondistended, normoactive bowel sounds. No palpable organomegaly. MUSCULOSKELETAL: No joint swelling or deformity. EXTREMITIES: No cyanosis, clubbing, or pedal edema. NEUROLOGICAL: Gross neurological examination did not reveal any focal deficits. SKIN: No rashes. Assessment and plan Acute CVA Hyponatremia Hyperkalemia Acute kidney injury Hypertension Hyperlipidemia Diabetes mellitus Monitor vital signs Monitor CBC Monitor CMP Continue telemetry monitoring Continue neurochecks Ordered 2D echo Hold blood pressure medications, allow permissive hypertension for the first 48 hours Monitor blood sugar levels, continue sliding scale insulin. Hold off metformin and glipizide because of acute kidney injury.start Levemir 8 units twice a Continue aspirin, Plavix Continue Lipitor Continue IV fluids Nephrology following Neurology following Labs and medication were reviewed.. Continue same treatment. Continue with symptomatic treatment. Resume home medication. Monitor labs and vitals. DVT and GI prophylaxis. Further recommendations as per clinical course of the patient Dictation was produced using [employer] dictation software. please excuse any grammatical, word or spelling errors. Objective - Vital Signs Vital signs: Vital Signs Temp 97.8 F 08/26/23 16:20 Pulse 80 08/27/23 08:41 Resp 20 08/27/23 08:41 BP 121/50 08/27/23 08:41 Pulse Ox 96 08/27/23 08:41 FiO2 Intake & Output 08/26/23 08/27/23 08/27/23 18:59 06:59 18:59 Weight 90.718 kg Other: Voiding Method Toilet - Labs CBC & Chem 7: 08/27/23 09:57 08/27/23 09:57 Labs: Abnormal Lab Results - Last 24 Hours (Table) 08/26/23 08/26/23 08/26/23 Range/Units 11:43 11:56 17:02 POC Glucose (mg/dL) 168 H 271 H (70-110) mg/dL Triglycerides (0.00-149.00) mg/dL VLDL Cholesterol, Calc (5.00-40.00) mg/dL HDL Cholesterol (40.00-60.00) mg/dL Urine Appearance Cloudy H (Clear) Urine Glucose (UA) 1+ H (Negative) Urine Nitrite Positive H (Negative) Ur Leukocyte Esterase Small H (Negative) Urine WBC 9 H (0-5) /hpf Ur Squamous Epith Cells 8 H (0-4) /hpf Urine Bacteria Many H (None) /hpf Urine Mucus Rare H (None) /hpf 08/26/23 08/27/23 08/27/23 Range/Units 20:10 05:56 07:47 POC Glucose (mg/dL) 298 H 349 H (70-110) mg/dL Triglycerides 257.00 H (0.00-149.00) mg/dL VLDL Cholesterol, Calc 51.40 H (5.00-40.00) mg/dL HDL Cholesterol 36.30 L (40.00-60.00) mg/dL Urine Appearance (Clear) Urine Glucose (UA) (Negative) Urine Nitrite (Negative) Ur Leukocyte Esterase (Negative) Urine WBC (0-5) /hpf Ur Squamous Epith Cells (0-4) /hpf Urine Bacteria (None) /hpf Urine Mucus (None) /hpf
--- NOTE | 2023-08-27 14:02 | P.PN ---
Subjective Progress Note Date: 08/27/23 I am following-up with the patient, and she is accompanied with her who is at bedside. According to the patient she feels she is back to baseline denies any further confusion or weakness dizziness or numbness. According to she was really confused when she presented to the hospital and she had some shaking episode. Objective - Vital Signs Vital signs: Vital Signs Temp 97.8 F 08/26/23 16:20 Pulse 78 08/27/23 12:24 Resp 18 08/27/23 12:24 BP 139/70 08/27/23 12:24 Pulse Ox 96 08/27/23 12:24 FiO2 Intake & Output 08/26/23 08/27/23 08/27/23 18:59 06:59 18:59 Weight 90.718 kg Other: Voiding Method Toilet - Exam GENERAL: The patient is lying in bed and is not in acute distress. NEUROLOGICAL: Higher mental function: The patient is awake, alert, oriented to self, place and time. Patient is following commands. No aphasia and no neglect. Cranial nerves: The pupils are round, equal and reactive to light and accommodation. Visual colin are full to confrontation throughout. Extraocular movement is intact no nystagmus is noted. Facial sensation is normal to touch throughout. The facial strength is normal throughout. Hearing is normal bilaterally to hand rub. Tongue is midline and moved [id number] without any difficulty. No dysarthria is noted. Shoulder shrug is normal bilaterally. Motor: The strength is 5 over 5 throughout. Normal tone and bulk. Cerebellum: Normal finger to nose heel to chin bilaterally. Sensation: Sensation is normal to touch throughout. Some of the workup during this hospital visit consisted of: Sodium is 127-->129, potassium is 5.2, creatinine is 2.65 that was trending to 1.91.. Initial serum glucose is 260. Then the glucose is hovering in the 200s to 370s. Potassium is 5.2 And as well as triglycerides 257, cholesterol is 130, LDL is 42, HDL is 36 [address]c is 9.8. CT of the head is reported as no acute intracranial process. I personally reviewed CT and agree with the report. CTA head and neck is reported as no limiting stenosis bilateral carotid bifurcation. Normal [place] of [place]. - Labs CBC & Chem 7: 08/27/23 09:57 08/27/23 09:57 Labs: Abnormal Lab Results - Last 24 Hours (Table) 08/26/23 08/26/23 08/26/23 Range/Units 11:43 11:43 17:02 Plt Count (150-450) k/uL Sodium (137-145) mmol/L Potassium (3.5-5.1) mmol/L BUN (7-17) mg/dL Creatinine (0.52-1.04) mg/dL Glucose (74-99) mg/dL POC Glucose (mg/dL) 271 H (70-110) mg/dL Hemoglobin A1c (<=6.0) % Alkaline Phosphatase (38-126) U/L Albumin (3.5-5.0) g/dL Triglycerides (0.00-149.00) mg/dL VLDL Cholesterol, Calc (5.00-40.00) mg/dL HDL Cholesterol (40.00-60.00) mg/dL Urine Osmolality 139 L (400-1100) mOsm/kg Ur Random Sodium 20 L (40-220) mmol/L 08/26/23 08/27/23 08/27/23 Range/Units 20:10 05:56 05:56 Plt Count (150-450) k/uL Sodium (137-145) mmol/L Potassium (3.5-5.1) mmol/L BUN (7-17) mg/dL Creatinine (0.52-1.04) mg/dL Glucose (74-99) mg/dL POC Glucose (mg/dL) 298 H (70-110) mg/dL Hemoglobin A1c 9.8 H (<=6.0) % Alkaline Phosphatase (38-126) U/L Albumin (3.5-5.0) g/dL Triglycerides 257.00 H (0.00-149.00) mg/dL VLDL Cholesterol, Calc 51.40 H (5.00-40.00) mg/dL HDL Cholesterol 36.30 L (40.00-60.00) mg/dL Urine Osmolality (400-1100) mOsm/kg Ur Random Sodium (40-220) mmol/L 08/27/23 08/27/23 08/27/23 Range/Units 07:47 09:57 09:57 Plt Count 484 H (150-450) k/uL Sodium 129 L (137-145) mmol/L Potassium 5.7 H (3.5-5.1) mmol/L BUN 25 H (7-17) mg/dL Creatinine 1.91 H (0.52-1.04) mg/dL Glucose 314 H (74-99) mg/dL POC Glucose (mg/dL) 349 H (70-110) mg/dL Hemoglobin A1c (<=6.0) % Alkaline Phosphatase 174 H (38-126) U/L Albumin 3.4 L (3.5-5.0) g/dL Triglycerides (0.00-149.00) mg/dL VLDL Cholesterol, Calc (5.00-40.00) mg/dL HDL Cholesterol (40.00-60.00) mg/dL Urine Osmolality (400-1100) mOsm/kg Ur Random Sodium (40-220) mmol/L 08/27/23 08/27/23 Range/Units 12:04 13:19 Plt Count (150-450) k/uL Sodium (137-145) mmol/L Potassium (3.5-5.1) mmol/L BUN (7-17) mg/dL Creatinine (0.52-1.04) mg/dL Glucose (74-99) mg/dL POC Glucose (mg/dL) 372 H 227 H (70-110) mg/dL Hemoglobin A1c (<=6.0) % Alkaline Phosphatase (38-126) U/L Albumin (3.5-5.0) g/dL Triglycerides (0.00-149.00) mg/dL VLDL Cholesterol, Calc (5.00-40.00) mg/dL HDL Cholesterol (40.00-60.00) mg/dL Urine Osmolality (400-1100) mOsm/kg Ur Random Sodium (40-220) mmol/L Assessment and Plan Assessment: This is a 58-year-old woman who presents emergency department since she woke up yesterday at 9 PM with left sided weakness left arm numbness left blurry vision dizziness, speech difficulty and confusion. Acute transient left-sided weakness numbness left blurry vision and speech difficulty, and confusion seems due to probable acute ischemic stroke. No IV thrombolytic since outside window and risk outweigh benefit Some of the altered mental status is also due to metabolic encephalopathy Diabetes mellitus and seems uncontrolled and HbA1c: 9.8 Hyponatremia Hypokalemia Dyslipidemia Kidney Insufficiency and unsure if acute or chronic--trending down History of hypertension Tobacco use Plan: Patient was given aspirin 325mg once then 1 started on 325 mg daily. Prior to this she was not on any antiplatelet. I also started the patient on Plavix 75 mg daily. She was started on Lipitor 20 mg daily and I change it to 40 mg daily Pending MRI of the brain, 2D echo. Ordered Routine EEG I ordered ammonia level TSH, vitamin B12, folate Continue neurochecks Cardiac monitoring PT OT and AUXILIARY EQUIPMENT OPERATOR are consulted Patient was counseled on tobacco cessation Will defer the rest of the medical management to primary and other specialist For DVT prophylaxis On subcu heparin 5000 units every 12 hours I discussed plan with the patient and her who is at bedside. Dr. Marquez will resume neurology service tomorrow A.M. Time with Patient: Less than 30
[2023-08-27 16:23] LABS: Glucose,Whole Blood 254 mg/dL (70-110)
[2023-08-27 16:44] LABS: T4, Free (Free Thyroxine) 2.02 ng/dL (0.78-2.19)
[2023-08-27 19:41] LABS: Glucose,Whole Blood 327 mg/dL (70-110)
[2023-08-27] MEDS: INSULIN DETEMIR (LEVEMIR) 100 UNIT/ML SYR SQ SCH (21:42)
[2023-08-28 06:04] LABS: Glucose,Whole Blood 159 mg/dL (70-110)
[2023-08-28 09:53] LABS: Basophils # (A) 0.1 k/uL (0-0.2); Basophils % (A) 1 %; Eosinophils # (A) 0.1 k/uL (0-0.7); Eosinophils % (A) 1 %; HCT 40.3 % (34.0-46.0); HGB 12.8 gm/dL (11.4-16.0); Lymphocytes # (A) 1.6 k/uL (1.0-4.8); Lymphocytes % (A) 16 %; MCH 28.8 pg (25.0-35.0); MCHC 31.8 g/dL (31.0-37.0); MCV 90.5 fL (80.0-100.0); Mean Platelet Volume 8.2; Monocytes # (A) 0.4 k/uL (0-1.0); Monocytes % (A) 4 %; Neutrophils # (A) 7.7 k/uL (1.3-7.7); Neutrophils % (A) 77 %; Platelet Count 502 k/uL (150-450); RBC 4.46 m/uL (3.80-5.40); RDW 12.9 % (11.5-15.5); WBC 10.1 k/uL (3.8-10.6)
[2023-08-28 10:14] VITALS: RESP 20
[2023-08-28 10:23] LABS: ALT 26 U/L (4-34); AST 28 U/L (14-36); African American GFR (CKD) 49 (>60 ml/min/1.73 sqM); Albumin 3.1 g/dL (3.5-5.0); Alkaline Phosphatase 188 U/L (38-126); Anion Gap 6 mmol/L; Blood Urea Nitrogen 19 mg/dL (7-17); Calcium 8.9 mg/dL (8.4-10.2); Carbon Dioxide 22 mmol/L (22-30); Chloride 104 mmol/L (98-107); Glucose 346 mg/dL (74-99); Non-African American GFR(CKD) 43 (>60 ml/min/1.73 sqM); Sodium 132 mmol/L (137-145); Total Bilirubin 0.3 mg/dL (0.2-1.3)
[2023-08-28 10:26] LABS: Potassium 6.1 mmol/L (3.5-5.1)
[2023-08-28] MEDS ORDERED: IPRATROPIUM-ALBUTEROL 3 ML NEB INHALATION PRN (10:38)
[2023-08-28] MEDS ORDERED: DEXTROSE 50% SYRINGE 50 ML IVP PRN ×2 (10:41)
--- NOTE | 2023-08-28 10:54 | P.PN ---
Subjective Progress Note Date: 08/28/23 This is a 58-year-old female currently being worked up for possible acute CVA and multiple other medical issues. Reports she showered today but felt off balance if she closed her eyes. States bilateral lower extremity weakness with the left greater than the right, toes of bilateral feet tingling, thus creating difficulty walking. Reports she is no longer "word stumbling" today compared to yesterday, reports that the tip of her tongue is numb and has left blurred vision. EEG and MRI pending. Renal function improving, creatinine decreased to 1.36. Potassium 6.1. Sodium improving, 132 blood sugars currently decreased to 159. Hemoglobin A1c 9.8. Afebrile, normal WBC. Denies chest pain, palpit ations or shortness of breath. Maintaining O2 sats of 97% on room air. Blood pressures currently soft. Objective - Vital Signs Vital signs: Vital Signs Temp 97.7 F 08/28/23 08:00 Pulse 98 08/28/23 08:00 Resp 20 08/28/23 08:00 BP 95/67 08/28/23 08:00 Pulse Ox 97 08/28/23 08:00 FiO2 Intake & Output 08/27/23 08/28/23 08/28/23 18:59 06:59 18:59 Intake Total 120 358 Balance 120 358 Intake: Oral 120 358 Other: Voiding Method Toilet - Exam PHYSICAL EXAM: VITAL SIGNS: [As above] GENERAL: Alert and oriented x 3, sitting up in bed, no acute distress, speech fluent, clear, appropriate. No dysarthria noted. HEENT: Conjunctivae normal. eyes normal. Tongue midline, MMM. NECK: Supple, no JVD. CARDIOVASCULAR: S1, S2 regular. No murmur RESPIRATION: Unlabored, equal air entry CTA, bilateral bases diminished ABDOMEN: Soft, nondistended, nontender . No guarding. no masses palpable. +BS LEGS: No edema. no swelling NERVOUS SYSTEM: Cranial N 2-12 grossly normal. Moves all 4 limbs. No focal deficits. Strength and sensation grossly intact. Skin: Warm and dry, no rash - Labs CBC & Chem 7: 08/28/23 09:18 08/28/23 09:18 Labs: Abnormal Lab Results - Last 24 Hours (Table) 08/26/23 08/27/23 08/27/23 Range/Units 11:43 12:04 13:19 Plt Count (150-450) k/uL Sodium (137-145) mmol/L Potassium (3.5-5.1) mmol/L BUN (7-17) mg/dL Creatinine (0.52-1.04) mg/dL Glucose (74-99) mg/dL POC Glucose (mg/dL) 372 H 227 H (70-110) mg/dL Alkaline Phosphatase (38-126) U/L Total Protein (6.3-8.2) g/dL Albumin (3.5-5.0) g/dL Vitamin B12 (200.0-944.0) pg/mL TSH (0.465-4.680) mIU/L Urine Osmolality 139 L (400-1100) mOsm/kg 08/27/23 08/27/23 08/27/23 Range/Units 14:39 16:21 16:41 Plt Count (150-450) k/uL Sodium (137-145) mmol/L Potassium 5.3 H (3.5-5.1) mmol/L BUN (7-17) mg/dL Creatinine (0.52-1.04) mg/dL Glucose (74-99) mg/dL POC Glucose (mg/dL) 254 H (70-110) mg/dL Alkaline Phosphatase (38-126) U/L Total Protein (6.3-8.2) g/dL Albumin (3.5-5.0) g/dL Vitamin B12 1463.0 H (200.0-944.0) pg/mL TSH 0.419 L (0.465-4.680) mIU/L Urine Osmolality (400-1100) mOsm/kg 08/27/23 08/28/23 08/28/23 Range/Units 19:39 06:02 09:18 Plt Count 502 H (150-450) k/uL Sodium (137-145) mmol/L Potassium (3.5-5.1) mmol/L BUN (7-17) mg/dL Creatinine (0.52-1.04) mg/dL Glucose (74-99) mg/dL POC Glucose (mg/dL) 327 H 159 H (70-110) mg/dL Alkaline Phosphatase (38-126) U/L Total Protein (6.3-8.2) g/dL Albumin (3.5-5.0) g/dL Vitamin B12 (200.0-944.0) pg/mL TSH (0.465-4.680) mIU/L Urine Osmolality (400-1100) mOsm/kg 0624/24 Range/Units 09:18 Plt Count (150-450) k/uL Sodium 132 L (137-145) mmol/L Potassium 6.1 H* (3.5-5.1) mmol/L BUN 19 H (7-17) mg/dL Creatinine 1.36 H (0.52-1.04) mg/dL Glucose 346 H (74-99) mg/dL POC Glucose (mg/dL) (70-110) mg/dL Alkaline Phosphatase 188 H (38-126) U/L Total Protein 6.0 L (6.3-8.2) g/dL Albumin 3.1 L (3.5-5.0) g/dL Vitamin B12 (200.0-944.0) pg/mL TSH (0.465-4.680) mIU/L Urine Osmolality (400-1100) mOsm/kg Assessment and Plan Assessment: Left greater than right bilateral lower extremity weakness accompanied by left blurred vision, tip of tongue numbness, ruling out acute CVA. Outside the window for IV thrombolytics. Acute metabolic encephalopathy, secondary to the above, improving. Ammonia level 10. Diabetes mellitus, uncontrolled, hyperglycemia, hemoglobin A1c 9.8. Patient and family will require further diabetic teaching outpatient in clinic. Acute renal insufficiency, secondary to ATN, improving Hyperkalemia Acute UTI, UA reports positive nitrates Hyponatremia, hypovolemic. improving Hypertension COPD Nicotine dependence of 1/2 pack/day x >40 years. Obesity, BMI 32 Plan: Continue on current medication regimen ,monitoring and symptomatic treatment. Nebulized bronchodilators, Lokelma ordered for hyperkalemia with recheck potassium level at 1500. Hemoglobin A1c 9.8, Levemir insulin increased, Premeal insulin added in addition to existing NovoLog sliding scale with close monitoring of blood sugars. Patient will need further diabetic education outpatient in clinic with PCP. Dietitian consulted for further diabetic education; staff reports family bring in in [employer]. neurology workup in progress, including EEG in progress, brain MRI, echo pending. Brain CT reported no acute intracranial process, CTA of head and neck reported no limiting stenosis of bilateral carotid bifurcation with normal [place] of [place]. UA reported positive nitrates, will initiate Keflex 500 mg twice daily. PT/OT/DIRECTOR ELECTRONICS. Smoking cessation reinforced. Repeat TSH level outpatient. The impression and plan of care has been dictated as directed. : I performed a history and examination of this patient, discussed the same with the dictator. I agree with the dictator's note ,documented as a scribe. Any additional findings or plans will be noted.
[2023-08-28] MEDS: CEPHALEXIN 500 MG CAP PO SCH (11:24)
[2023-08-28] MEDS: SODIUM ZIRCONIUM CYCLOSILICATE 10 GM PACKET PO ONE (11:24)
[2023-08-28] MEDS: INSULIN DETEMIR (LEVEMIR) 100 UNIT/ML SYR SQ ONE (11:25)
[2023-08-28 11:28] LABS: Glucose,Whole Blood 344 mg/dL (70-110)
[2023-08-28] MEDS: IPRATROPIUM-ALBUTEROL 3 ML NEB INHALATION SCH (11:46)
[2023-08-28] MEDS: INSULIN ASPART (NovoLOG) 100 UNIT/ML VIAL SQ SCH (12:18)
--- NOTE | 2023-08-28 12:28 | P.PN ---
Subjective patient is seen for follow-up for acute kidney injury. Renal function is improved with IV hydration. No evidence of obstruction noted on ultrasound. Potassium is staying high at 6.1. Blood sugars have been elevated at 346. serum creatinine decreased to 1.3. Objective - Vital Signs Vital signs: Vital Signs Temp 97.9 F 08/28/23 11:29 Pulse 84 08/28/23 11:56 Resp 20 08/28/23 11:29 BP 139/72 08/28/23 11:29 Pulse Ox 100 08/28/23 11:29 FiO2 Intake & Output 08/27/23 08/28/23 08/28/23 18:59 06:59 18:59 Intake Total 120 358 Balance 120 358 Intake: Oral 120 358 Other: Voiding Method Toilet - Exam patient is awake, comfortable, no acute distress Examination of the heart S1 and S2 Examination of the lungs bilateral breath sounds are heard Abdomen is soft nontender Examination lower extremity shows no significant edema HAND COLLATOR exam grossly intact - Labs CBC & Chem 7: 08/28/23 09:18 08/28/23 09:18 Labs: Abnormal Lab Results - Last 24 Hours (Table) 08/26/23 08/27/23 08/27/23 Range/Units 11:43 13:19 14:39 Plt Count (150-450) k/uL Sodium (137-145) mmol/L Potassium (3.5-5.1) mmol/L BUN (7-17) mg/dL Creatinine (0.52-1.04) mg/dL Glucose (74-99) mg/dL POC Glucose (mg/dL) 227 H (70-110) mg/dL Alkaline Phosphatase (38-126) U/L Total Protein (6.3-8.2) g/dL Albumin (3.5-5.0) g/dL Vitamin B12 1463.0 H (200.0-944.0) pg/mL TSH 0.419 L (0.465-4.680) mIU/L Urine Osmolality 139 L (400-1100) mOsm/kg 08/27/23 08/27/23 08/27/23 Range/Units 16:21 16:41 19:39 Plt Count (150-450) k/uL Sodium (137-145) mmol/L Potassium 5.3 H (3.5-5.1) mmol/L BUN (7-17) mg/dL Creatinine (0.52-1.04) mg/dL Glucose (74-99) mg/dL POC Glucose (mg/dL) 254 H 327 H (70-110) mg/dL Alkaline Phosphatase (38-126) U/L Total Protein (6.3-8.2) g/dL Albumin (3.5-5.0) g/dL Vitamin B12 (200.0-944.0) pg/mL TSH (0.465-4.680) mIU/L Urine Osmolality (400-1100) mOsm/kg 08/28/23 08/28/23 08/28/23 Range/Units 06:02 09:18 09:18 Plt Count 502 H (150-450) k/uL Sodium 132 L (137-145) mmol/L Potassium 6.1 H* (3.5-5.1) mmol/L BUN 19 H (7-17) mg/dL Creatinine 1.36 H (0.52-1.04) mg/dL Glucose 346 H (74-99) mg/dL POC Glucose (mg/dL) 159 H (70-110) mg/dL Alkaline Phosphatase 188 H (38-126) U/L Total Protein 6.0 L (6.3-8.2) g/dL Albumin 3.1 L (3.5-5.0) g/dL Vitamin B12 (200.0-944.0) pg/mL TSH (0.465-4.680) mIU/L Urine Osmolality (400-1100) mOsm/kg 08/28/23 Range/Units 11:26 Plt Count (150-450) k/uL Sodium (137-145) mmol/L Potassium (3.5-5.1) mmol/L BUN (7-17) mg/dL Creatinine (0.52-1.04) mg/dL Glucose (74-99) mg/dL POC Glucose (mg/dL) 344 H (70-110) mg/dL Alkaline Phosphatase (38-126) U/L Total Protein (6.3-8.2) g/dL Albumin (3.5-5.0) g/dL Vitamin B12 (200.0-944.0) pg/mL TSH (0.465-4.680) mIU/L Urine Osmolality (400-1100) mOsm/kg Assessment and Plan Assessment: 1. Acute kidney injury most likely ATN currently nonoliguric. Continue with IV fluids. Agree with holding angiotensin receptor blockers. UA shows 1+ blood and WBCs 9, no protein. 2. Hyponatremia, hypovolemic currently maintained on saline and improved 3. Left arm weakness rule out CVA. neurology on consult. 4. History of hypertension 5. Hyperkalemia associated with acute kidney injury and hyperglycemia. Rule out urine retention Plan: continue with normal saline Control blood sugars check post void bladder scan IV Lasix 1 to help with hyperkalemia
[2023-08-28] MEDS: FUROSEMIDE 10 MG/ML 2 ML VIAL IV ONE (12:35)
--- NOTE | 2023-08-28 12:58 | EEG ---
ELECTROENCEPHALOGRAM REPORT PREAMBLE: This is a 58-year-old female admitted with confusion, rule out seizure. The patient had left-sided weakness and left arm numbness with some dizziness and confusion. She had blurred vision with the left eye and some difficulty getting her words out. This study is performed to rule out any seizure activity. EEG FINDINGS: This is a 21-channel digital EEG recorded with video component, utilizing 10/20 international system with referential and bipolar montages. Background consists of well developed, well regulated moderate voltage activity in 8 hertz alpha. Background is posterior dominant and reactive to eye opening and closing. Frequent eye movement artifact was seen during middle part of the study. Photic driving response was not seen. Different stages of sleep were not seen. No focal or generalized epileptiform activity was seen. IMPRESSION: This is a normal awake and drowsy EEG. No focal, lateralized, or epileptiform activity was seen. MMODL / IJN: [id number] /
[2023-08-28 13:39] LABS: Glucose,Whole Blood 383 mg/dL (70-110)
[2023-08-28] MEDS: INSULIN REGULAR 100 UNIT/ML VIAL (IV) IV ONE (15:14)
[2023-08-28] MEDS: INSULIN ASPART (NovoLOG) 100 UNIT/ML VIAL SQ ONE (15:17)
[2023-08-28 15:49] LABS: Glucose,Whole Blood 329 mg/dL (70-110)
--- NOTE | 2023-08-28 17:08 | CA ---
Transthoracic Echo Report Name: Betsy Ramos Age: 58 Gender: F : 1965 Exam Date: 08/28/2023 14:06 Exam Location: [facility] Ht (in): 66 Wt (lb): 200 Ordering Physician: Nabor Segovia DO Attending/Referring Phys: Night Baker Kyleigh Rice RDCS Procedure CPT: Indications: Thrombus Cardiac Hx: Technical Quality: Technically difficult study Contrast 1: Definity Total Dose (mL): 2 Contrast 2: Total Dose (mL): MEASUREMENTS (Male / Female) Normal Values 2D ECHO LVOT Diameter 2.0 cm LV Diastolic Volume MOD BP 71.4 cm??? 67 - 155 / 56 - 104 cm??? LV Systolic Volume MOD BP 28.1 cm??? 22 - 58 / 19 - 49 cm??? LV Ejection Fraction MOD BP 60.7 % >= 55 % LV Cardiac Index MOD BP 1848.0 cm???/min???m??? LV Diastolic Volume MOD 4C 68.2 cm??? LV Systolic Volume MOD 4C 27.3 cm??? LV Ejection Fraction MOD 4C 60.0 % LV Cardiac Index MOD 4C 1745.2 cm???/min???m??? LV Diastolic Length 4C 6.7 cm LV Systolic Length 4C 5.9 cm LV Diastolic Volume MOD 2C 71.8 cm??? LV Systolic Volume MOD 2C 28.3 cm??? LV Ejection Fraction MOD 2C 60.6 % LV Cardiac Index MOD 2C 1853.7 cm???/min???m??? LV Diastolic Length 2C 7.0 cm LV Systolic Length 2C 5.8 cm LA Volume 41.2 cm??? 18 - 58 / 22 - 52 cm??? LA Volume Index 19.8 cm???/m??? 16 - 28 cm???/m??? Ascending Aorta Diameter 3.0 cm DOPPLER AV Peak Velocity 139.6 cm/s AV Peak Gradient 7.8 mmHg AV Mean Velocity 92.3 cm/s AV Mean Gradient 3.8 mmHg AV Velocity Time Integral 25.8 cm LVOT Peak Velocity 100.9 cm/s LVOT Peak Gradient 4.1 mmHg LVOT Velocity Time Integral 21.0 cm LVOT Stroke Volume 67.2 cm??? LVOT Stroke Volume Index 33.6 ml/m??? LVOT Cardiac Index 2867.1 cm???/min???m??? AV Area Cont Eq vti 2.6 cm??? AV Area Cont Eq pk 2.3 cm??? MV Area PHT 5.0 cm??? Mitral E Point Velocity 51.3 cm/s Mitral A Point Velocity 70.2 cm/s Mitral E to A Ratio 0.7 MV Deceleration Time 150.9 ms PV Peak Velocity 101.6 cm/s PV Peak Gradient 4.1 mmHg FINDINGS Left Ventricle Left ventricular ejection fraction is estimated at 60 %. Left ventricular cavity size normal. Left ventricular wall thickness normal. No obvious regional wall motion abnormalities. Right Ventricle Right ventricle not well visualized. Unable to estimate the right ventricular systolic pressure. Right Atrium Normal right atrial size by visual estimate. Left Atrium Normal left atrial size. Mitral Valve Structurally normal mitral valve. No evidence for mitral valve prolapse. No mitral stenosis. No mitral regurgitation. Aortic Valve Aortic valve not well visualized. No aortic valve stenosis or regurgitation. Tricuspid Valve Structurally normal tricuspid valve. No tricuspid stenosis. No tricuspid regurgitation. Pulmonic Valve Structurally normal pulmonic valve. No pulmonic stenosis. No pulmonic regurgitation. Pericardium No pericardial effusion. Aorta Normal size aortic root and proximal ascending aorta. CONCLUSIONS Left ventricular ejection fraction is estimated at 55-60 %. No obvious regional wall motion abnormality No significant chamber size abnormality No significant valvular dysfunction No prior echo to compare with in database Previewed by: Dr Callum Macias (Electronically Signed) Final Date: 28 August 2023 17:07
[2023-08-28 17:13] LABS: Glucose,Whole Blood 330 mg/dL (70-110)
--- NOTE | 2023-08-28 18:19 | MR ---
EXAMINATION TYPE: MR brain wo con DATE OF EXAM: 08/28/2023 4:48 PM CLINICAL INDICATION:Female, 58 years old with history of stroke. left sided weakness and numbness; P HH, Stroke, Left sided weakness and numbness COMPARISON: 08/26/2023. TECHNIQUE: Multi planar, multi sequence imaging was performed through the brain including: T1, T2, In version recovery, Diffusion weighted imaging, and gradient echo imaging. No gadolinium was given. FINDINGS: The jo-white junctions, ventricular system, basal cisterns appear unremarkable. Scattered foci of high T2 signal intensity are seen within the periventricular white matter. Midline structures show n o abnormality. Diffusion-weighted imaging shows no evidence of restricted diffusion. The susceptibili ty weighted images do not reveal any evidence for micro-hemorrhage. The bone marrow signal is within normal limits. Paranasal sinuses and mastoid air cells: No significant paranasal sinus disease. Visualized orbits: Orbital contents are intact. IMPRESSION: 1. No evidence of intracranial mass or acute/subacute infarct. 2. Nonspecific white matter changes, likely secondary to small vessel ischemic disease.
[2023-08-28 20:22] LABS: Glucose,Whole Blood 333 mg/dL (70-110)
[2023-08-28] MEDS: INSULIN DETEMIR (LEVEMIR) 100 UNIT/ML SYR SQ SCH (20:49)
[2023-08-28] MEDS ORDERED: INSULIN DETEMIR (LEVEMIR) 100 UNIT/ML SYR SQ SCH (21:00)
[2023-08-29 06:09] LABS: Glucose,Whole Blood 126 mg/dL (70-110)
[2023-08-29 08:30] LABS: Basophils # (A) 0.1 k/uL (0-0.2); Basophils % (A) 1 %; Eosinophils # (A) 0.1 k/uL (0-0.7); Eosinophils % (A) 1 %; HCT 38.9 % (34.0-46.0); HGB 12.1 gm/dL (11.4-16.0); Lymphocytes # (A) 2.1 k/uL (1.0-4.8); Lymphocytes % (A) 24 %; MCH 28.6 pg (25.0-35.0); MCHC 31.2 g/dL (31.0-37.0); MCV 91.8 fL (80.0-100.0); Mean Platelet Volume 7.8; Monocytes # (A) 0.5 k/uL (0-1.0); Monocytes % (A) 6 %; Neutrophils # (A) 5.9 k/uL (1.3-7.7); Neutrophils % (A) 67 %; Platelet Count 468 k/uL (150-450); RBC 4.23 m/uL (3.80-5.40); RDW 12.8 % (11.5-15.5); WBC 8.8 k/uL (3.8-10.6)
[2023-08-29 08:51] LABS: African American GFR (CKD) 60 (>60 ml/min/1.73 sqM); Anion Gap 5 mmol/L; Blood Urea Nitrogen 18 mg/dL (7-17); Calcium 8.6 mg/dL (8.4-10.2); Carbon Dioxide 26 mmol/L (22-30); Chloride 106 mmol/L (98-107); Glucose 138 mg/dL (74-99); Non-African American GFR(CKD) 52 (>60 ml/min/1.73 sqM); Potassium 4.9 mmol/L (3.5-5.1); Sodium 137 mmol/L (137-145)
--- NOTE | 2023-08-29 10:10 | P.PN ---
Subjective Progress Note Date: 08/28/23 Patient was initially seen by Dr. Chandrakant Gallardo. Please refer to his note for details. Patient is a 58-year-old female with transient left-sided weakness, numbness and confusion. Probable TIA. All symptoms have resolved. Patient at present laying in the bed comfortably, offers no complaints. Some of the workup during this hospital visit consisted of: Sodium is 127-->129, potassium is 5.2, creatinine is 2.65 that was trending to 1.91.. Initial serum glucose is 260. Then the glucose is hovering in the 200s to 370s. Potassium is 5.2 And as well as triglycerides 257, cholesterol is 130, LDL is 42, HDL is 36 [address] is 9.8. CT of the head is reported as no acute intracranial process. I personally reviewed CT and agree with the report. CTA head and neck is reported as no limiting stenosis bilateral carotid bifurcation. Normal [facility] [place]. Objective - Vital Signs Vital signs: Vital Signs Temp 97.7 F 08/28/23 17:00 Pulse 89 08/28/23 20:28 Resp 20 08/28/23 17:00 BP 113/66 08/28/23 17:00 Pulse Ox 95 08/28/23 17:00 FiO2 Intake & Output 08/28/23 08/28/23 08/29/23 06:59 18:59 06:59 Intake Total 594 Output Total 1300 Balance -706 Intake: Oral 594 Output: Urine 1300 Other: Voiding Method Toilet - Exam Patient's mental status, speech and language functions are normal. No aphasia or dysarthria. Cranial nerves are normal. Muscle strength is normal in the arms and legs. Normal tone and bulk. No ataxia for [id number] testing. Sensory to touch is equal with no neglect. - Labs CBC & Chem 7: 08/29/23 07:36 08/29/23 07:36 Labs: Abnormal Lab Results - Last 24 Hours (Table) 08/27/23 08/28/23 08/28/23 Range/Units 14:39 06:02 09:18 Plt Count (150-450) k/uL Sodium (137-145) mmol/L Potassium (3.5-5.1) mmol/L BUN (7-17) mg/dL Creatinine (0.52-1.04) mg/dL Glucose (74-99) mg/dL POC Glucose (mg/dL) 159 H (70-110) mg/dL Hemoglobin A1c 9.8 H (<=6.0) % Alkaline Phosphatase (38-126) U/L Total Protein (6.3-8.2) g/dL Albumin (3.5-5.0) g/dL Vitamin B12 1463.0 H (200.0-944.0) pg/mL 08/28/23 08/28/23 08/28/23 Range/Units 09:18 09:18 11:26 Plt Count 502 H (150-450) k/uL Sodium 132 L (137-145) mmol/L Potassium 6.1 H* (3.5-5.1) mmol/L BUN 19 H (7-17) mg/dL Creatinine 1.36 H (0.52-1.04) mg/dL Glucose 346 H (74-99) mg/dL POC Glucose (mg/dL) 344 H (70-110) mg/dL Hemoglobin A1c (<=6.0) % Alkaline Phosphatase 188 H (38-126) U/L Total Protein 6.0 L (6.3-8.2) g/dL Albumin 3.1 L (3.5-5.0) g/dL Vitamin B12 (200.0-944.0) pg/mL 08/28/23 08/28/23 08/28/23 Range/Units 13:38 15:24 15:48 Plt Count (150-450) k/uL Sodium (137-145) mmol/L Potassium 5.2 H (3.5-5.1) mmol/L BUN (7-17) mg/dL Creatinine (0.52-1.04) mg/dL Glucose (74-99) mg/dL POC Glucose (mg/dL) 383 H 329 H (70-110) mg/dL Hemoglobin A1c (<=6.0) % Alkaline Phosphatase (38-126) U/L Total Protein (6.3-8.2) g/dL Albumin (3.5-5.0) g/dL Vitamin B12 (200.0-944.0) pg/mL 08/28/23 08/28/23 Range/Units 17:12 20:21 Plt Count (150-450) k/uL Sodium (137-145) mmol/L Potassium (3.5-5.1) mmol/L BUN (7-17) mg/dL Creatinine (0.52-1.04) mg/dL Glucose (74-99) mg/dL POC Glucose (mg/dL) 330 H 333 H (70-110) mg/dL Hemoglobin A1c (<=6.0) % Alkaline Phosphatase (38-126) U/L Total Protein (6.3-8.2) g/dL Albumin (3.5-5.0) g/dL Vitamin B12 (200.0-944.0) pg/mL Assessment and Plan Assessment: This is a 58-year-old woman who presents emergency department since she woke up yesterday at 9 PM with left sided weakness left arm numbness left blurry vision dizziness, speech difficulty and confusion. Acute transient left-sided weakness numbness left blurry vision and speech difficulty, and confusion seems due to probable acute ischemic stroke. No IV thrombolytic since outside window and risk outweigh benefit Some of the altered mental status is also due to metabolic encephalopathy Diabetes mellitus and seems uncontrolled and HbA1c: 9.8 Hyponatremia Hypokalemia Dyslipidemia Kidney Insufficiency and unsure if acute or chronic--trending down History of hypertension Tobacco use Plan: MRI of the brain revealed no evidence of intracranial mass or acute/subacute infarct. Nonspecific white matter changes, likely secondary to small vessel ischemic disease. I personally reviewed MRI agree with the findings. 2D echo revealed normal left ventricular size and systolic function with EF 60%. No obvious regional wall motion abnormalities. No significant chamber size abnormality. No significant valvular dysfunction. EEG was normal awake and drowsy. No focal, lateralized or epileptiform activity was seen. Patient was not taking any antiplatelet medication at home. Recommend dual antiplatelet medication with aspirin 81 mg and Plavix 75 mg for 21 days. Then stop Plavix and continue aspirin indefinitely. Lipid panel with cholesterol 130, LDL 42, HDL 36, triglycerides 257. Patient used to take Lipitor [address] Gallardo increase the dose to 40 mg daily Hemoglobin A1c 9.8 Ammonia level 10, TSH 0.419, with normal free T4 2.02. We will defer to IM for addressing abnormal thyroid functions. Vitamin B12 1463, folate 19.0 Continue neurochecks Cardiac monitoring PT OT and PATROL POLICE SERGEANT are consulted Patient was counseled on tobacco cessation Will defer the rest of the medical management to primary and other specialist For DVT prophylaxis On subcu heparin 5000 units every 12 hours Neurologically clear for discharge.
[2023-08-29 11:18] VITALS: PULSE 84
[2023-08-29 11:33] VITALS: BP 107/71; TEMP 97.6
[2023-08-29 11:50] LABS: Glucose,Whole Blood 199 mg/dL (70-110)
--- NOTE | 2023-08-29 11:53 | P.PN ---
Subjective patient is seen for follow-up for acute kidney injury. Renal function is improved with IV hydration. No evidence of obstruction noted on ultrasound. Serum potassium has improved as well with improvement in blood sugars. Serum creatinine at 1.1 today and potassium at 4.9. No significant complaints today. Objective - Vital Signs Vital signs: Vital Signs Temp 97.6 F 08/29/23 11:32 Pulse 84 08/29/23 11:32 Resp 20 08/29/23 11:32 BP 107/71 08/29/23 11:32 Pulse Ox 95 08/29/23 11:32 FiO2 21 08/29/23 08:13 Intake & Output 08/28/23 08/29/23 08/29/23 18:59 06:59 18:59 Intake Total 594 248 Output Total 1300 Balance -706 248 Intake: Oral 594 248 Output: Urine 1300 Other: Voiding Method Toilet - Exam patient is awake, comfortable, no acute distress Examination of the heart S1 and S2 Examination of the lungs bilateral breath sounds are heard Abdomen is soft nontender Examination lower extremity shows no significant edema TRACTOR MECHANIC APPRENTICE exam grossly intact - Labs CBC & Chem 7: 08/29/23 07:36 08/29/23 07:36 Labs: Abnormal Lab Results - Last 24 Hours (Table) 08/28/23 08/28/23 08/28/23 Range/Units 09:18 13:38 15:24 Plt Count (150-450) k/uL Potassium 5.2 H (3.5-5.1) mmol/L BUN (7-17) mg/dL Creatinine (0.52-1.04) mg/dL Glucose (74-99) mg/dL POC Glucose (mg/dL) 383 H (70-110) mg/dL Hemoglobin A1c 9.8 H (<=6.0) % 08/28/23 08/28/23 08/28/23 Range/Units 15:48 17:12 20:21 Plt Count (150-450) k/uL Potassium (3.5-5.1) mmol/L BUN (7-17) mg/dL Creatinine (0.52-1.04) mg/dL Glucose (74-99) mg/dL POC Glucose (mg/dL) 329 H 330 H 333 H (70-110) mg/dL Hemoglobin A1c (<=6.0) % 08/29/23 08/29/2308/28/24 Range/Units 06:07 07:36 07:36 Plt Count 468 H (150-450) k/uL Potassium (3.5-5.1) mmol/L BUN 18 H (7-17) mg/dL Creatinine 1.15 H (0.52-1.04) mg/dL Glucose 138 H (74-99) mg/dL POC Glucose (mg/dL) 126 H (70-110) mg/dL Hemoglobin A1c (<=6.0) % Assessment and Plan Assessment: 1. Acute kidney injury most likely ATN currently nonoliguric. Continue with IV fluids. Agree with holding angiotensin receptor blockers. UA shows 1+ blood and WBCs 9, no protein. 2. Hyponatremia, hypovolemic currently maintained on saline and improved 3. Left arm weakness rule out CVA. neurology on consult. 4. History of hypertension 5. Hyperkalemia associated with acute kidney injury and hyperglycemia. no urine retention. Plan: continue with normal saline continue to maintain blood sugars less than 180
[2023-08-29 13:32] VITALS: BMI 32.3
--- NOTE | 2023-09-01 12:45 | P.DS ---
Providers Date of admission: 08/28/23 11:16 Expected date of discharge: 08/29/23 Attending physician: Jeff Seals MD Consults: 08/26/23 08:58 Consult Physician Urgent Consulting Provider: Chandrakant Gallardo Consult Reason/Comments: cva Do you want consulting provider notified?: Yes 08/26/23 09:52 Consult Physician Routine Consulting Provider: Amber Beasley Consult Reason/Comments: BIMAL, hyperkalemia Do you want consulting provider notified?: Yes Primary care physician: Jeff Seals MD Hospital Course: Final Diagnoses: Acute left greater than right bilateral lower extremity weakness accompanied by left blurred vision, tip of tongue numbness, Outside the window for IV thrombolytics. Probable TIA as per neurology. Acute metabolic encephalopathy, secondary to the above, improving. Ammonia level 10. Diabetes mellitus, uncontrolled, hyperglycemia, hemoglobin A1c 9.8. Patient and family will require further diabetic teaching outpatient in clinic. Acute renal insufficiency, secondary to ATN, improved Hyperkalemia, resolved Acute UTI, UA reports positive nitrates Hyponatremia, hypovolemic. improving Hypertension COPD Nicotine dependence of 1/2 pack/day x >40 years. Obesity, BMI 32 Hospital course:This is a 58-year-old female currently being worked up for possible acute CVA and multiple other medical issues. Reports she showered today but felt off balance if she closed her eyes. States bilateral lower extremity weakness with the left greater than the right, toes of bilateral feet tingling, thus creating difficulty walking. Reports she is no longer "word stumbling" today compared to yesterday, reports that the tip of her tongue is numb and has left blurred vision. EEG and MRI pending. Renal function improving, creatinine decreased to 1.36. Potassium 6.1. Sodium improving, 132 blood sugars currently decreased to 159. Hemoglobin A1c 9.8. Afebrile, normal WBC. Denies chest pain, palpitations or shortness of breath. Maintaining O2 sats of 97% on room air. Blood pressures currently soft. Continue on current medication regimen ,monitoring and symptomatic treatment. Nebulized bronchodilators, Lokelma ordered for hyperkalemia with recheck potassium level at 1500. Hemoglobin A1c 9.8, Levemir insulin increased, Premeal insulin added in addition to existing NovoLog sliding scale with close monitoring of blood sugars. Patient will need further diabetic education outpatient in clinic with PCP. Dietitian consulted for further diabetic education; staff reports family bring in in [employer]. neurology workup in progress, including EEG in progress, brain MRI, echo pending. Brain CT reported no acute intracranial process, CTA of head and neck reported no limiting stenosis of bilateral carotid bifurcation with normal [place]. UA reported positive nitrates, will initiate Keflex 500 mg twice daily. PT/OT/DAYCARE DIRECTOR. Smoking cessation reinforced. Repeat TSH level outpatient. Significant clinical improvement. Renal ultrasound reported normal .renal function improved with IV fluid hydration .blood sugars controlled, potassium 4.9, creatinine 1.1 .All symptoms have resolved. Denies lightheadedness, dizziness or focal deficits. Denies numbness or tingling. brain MRI reporting no evidence of intracranial mass or acute/subacute infarct, nonspecific white matter changes likely secondary to small vessel ischemic disease .EEG reported normal, no focal, lateralized or a left form activity seen. Echo reported normal LV function, no significant valvular dysfunction, no significant chamber size abnormality, no obvious regional wall motion abnormality. denies chest pain, palpitations or shortness of breath. Patient has been cleared by neurology for discharge. Patient will be discharged home today in a stable condition with guarded prognosis. The impression and plan of care has been dictated as directed. : I performed a history and examination of this patient, discussed the same with the dictator. I agree with the dictator's note ,documented as a scribe. Any additional findings or plans will be noted. Patient Condition at Discharge: Stable Plan - Discharge Summary Discharge Rx Participant: Yes New Discharge Prescriptions: New Insulin Glargine,Hum.rec.anlog [Lantus Solostar Pen] 22 units SQ DAILY #2 each Atorvastatin [Lipitor] 40 mg PO DAILY #30 tab Aspirin EC [Ecotrin Low Dose] 81 mg PO DAILY #30 tab Clopidogrel [Plavix] 75 mg PO DAILY #21 tablet Cephalexin [Keflex] 500 mg PO BID #4 cap Continue Omeprazole 20 mg PO BID Venlafaxine HCl [Effexor XR] 150 mg PO DAILY Metoprolol Succinate [Metoprolol Succinate ER] 25 mg PO HS Tirzepatide [Mounjaro] 7.5 mg SQ BISWAS Pregabalin [Lyrica] 150 mg PO BID Discontinued Atorvastatin [Lipitor] 20 mg PO DAILY metFORMIN HCL 1,000 mg PO HS glipiZIDE [Glucotrol] 5 mg PO AC-BID Losartan Potassium 100 mg PO DAILY Discharge Medication List Omeprazole 20 mg PO BID 11/19/15 [History] Metoprolol Succinate [Metoprolol Succinate ER] 25 mg PO HS 08/26/23 [History] Pregabalin [Lyrica] 150 mg PO BID 08/26/23 [History] Tirzepatide [Mounjaro] 7.5 mg SQ BISWAS 08/26/23 [History] Venlafaxine HCl [Effexor XR] 150 mg PO DAILY 08/26/23 [History] Aspirin EC [Ecotrin Low Dose] 81 mg PO DAILY #30 tab 08/29/23 [Rx] Atorvastatin [Lipitor] 40 mg PO DAILY #30 tab 08/29/23 [Rx] Cephalexin [Keflex] 500 mg PO BID #4 cap 08/29/23 [Rx] Clopidogrel [Plavix] 75 mg PO DAILY #21 tablet 08/29/23 [Rx] Insulin Glargine,Hum.rec.anlog [Lantus Solostar Pen] 22 units SQ DAILY #2 each 08/29/23 [Rx] Follow up Appointment(s)/Referral(s): Jeff Seals MD [Primary Care Provider] - 09/01/23 9:15 am ([place] office with KAREN GRANT) Ambulatory/Diagnostic Orders: Basic Metabolic Panel [LAB.AMB] Time Frame: 3 Days, Location: None Selected Patient Instructions/Handouts: Ischemic Stroke (DC) Activity/Diet/Wound Care/Special Instructions: Accu-Cheks before meals and at bedtime, maintain log and take to follow-up visit with PCP for further recommendations. Diabetic teaching outpatient in clinic with PCP. Repeat thyroid panel outpatient with PCP Neurology recommends dual antiplatelet medication with aspirin 81 mg and Plavix 75 mg for 21 days. Then stop Plavix and continue aspirin indefinitely. Discharge Disposition: HOME SELF-CARE
== END 2023-08-29 14:04 | disposition home or self-care (01) | DRG 682 ==
LOC: EC 07:42 → 6NMEDSUR 08:57 → 3SCARD 08-27 10:34 → OBSVTOIN 08-28 11:16
PROVIDERS: ADMIT Family Medicine; ATTEND Family Medicine
DX: N17.0 Acute kidney failure with tubular necrosis (principal); G93.41 Metabolic encephalopathy; E87.1 Hypo-osmolality and hyponatremia; N39.0 Urinary tract infection, site not specified; G81.94 Hemiplegia, unspecified affecting left nondominant side; E66.9 Obesity, unspecified; Z68.32 Body mass index [BMI] 32.0-32.9, adult; E86.1 Hypovolemia; E11.65 Type 2 diabetes mellitus with hyperglycemia; E87.5 Hyperkalemia; F17.210 Nicotine dependence, cigarettes, uncomplicated; J44.9 Chronic obstructive pulmonary disease, unspecified; I10 Essential (primary) hypertension; E87.6 Hypokalemia; F32.A Depression, unspecified; F41.9 Anxiety disorder, unspecified; E78.5 Hyperlipidemia, unspecified; Z79.4 Long term (current) use of insulin; Z79.84 Long term (current) use of oral hypoglycemic drugs; Z79.899 Other long term (current) drug therapy; Z82.49 Family history of ischemic heart disease and other diseases of the circulatory system
CPT/HCPCS: 36415; 70450; 70496; 70498; 70551; 71046; 76770; 80048; 80053; 80061; 81001; 82140; 82550; 82570; 82607; 82746; 83036; 83930; 83935; 84132; 84300; 84439; 84443; 85025; 85610; 85730; 87205; 93005; 93306; 94640; 94760; 95816; 99285

== ENCOUNTER 2024-04-29 11:33 | Emergency (ER) | payer BC, MEDICARE ==
[2024-04-29 11:42] VITALS: TEMP 97.8
[2024-04-29 13:22] LABS: Basophils # (A) 0.1 k/uL (0-0.2); Basophils % (A) 1 %; Eosinophils # (A) 0.2 k/uL (0-0.7); Eosinophils % (A) 2 %; HCT 46.1 % (34.0-46.0); HGB 14.3 gm/dL (11.4-16.0); Hypochromasia Slight; Lymphocytes # (A) 2.6 k/uL (1.0-4.8); Lymphocytes % (A) 30 %; MCHC 31.1 g/dL (31.0-37.0); Mean Platelet Volume 8.9; Monocytes # (A) 0.3 k/uL (0-1.0); Monocytes % (A) 3 %; Neutrophils # (A) 5.4 k/uL (1.3-7.7); Neutrophils % (A) 63 %; Platelet Count 253 k/uL (150-450); RDW 13.1 % (11.5-15.5); WBC 8.6 k/uL (3.8-10.6)
[2024-04-29] MEDS: SODIUM CHLORIDE 0.9% 1,000 ML IV STA ×2 (13:33→15:12)
[2024-04-29 13:46] LABS: Partial Thromboplastin Time 23.8 sec (22.0-30.0); Prothrombin Time 11.1 sec (10.0-12.5)
[2024-04-29 13:48] LABS: ALT 42 U/L (4-34); AST 41 U/L (14-36); African American GFR (CKD) >90 (>60 ml/min/1.73 sqM); Alkaline Phosphatase 176 U/L (38-126); Anion Gap 9 mmol/L; Blood Urea Nitrogen 20 mg/dL (7-17); Calcium 9.8 mg/dL (8.4-10.2); Carbon Dioxide 29 mmol/L (22-30); Chloride 95 mmol/L (98-107); Glucose 482 mg/dL (74-99); Non-African American GFR(CKD) 89 (>60 ml/min/1.73 sqM); Potassium 4.6 mmol/L (3.5-5.1); Sodium 133 mmol/L (137-145); Total Bilirubin 0.4 mg/dL (0.2-1.3); Total Protein 7.1 g/dL (6.3-8.2)
[2024-04-29 13:50] LABS: Appearance,Urine Clear (Clear); Bilirubin,Urine Negative (Negative); Blood,Urine Negative (Negative); Color,Urine Colorless; Glucose,Urine (UA) 4+ (Negative); Ketones,Urine Negative (Negative); Leukocyte Esterase,Urine Negative (Negative); Mucus,Urine Rare /hpf; Nitrite,Urine Positive (Negative); Protein,Urine Negative (Negative); RBC,Urine 1 /hpf (0-5); Specific Gravity,Urine 1.028 (1.001-1.035); Urobilinogen,Urine <2.0 mg/dL (<2.0); WBC,Urine 11 /hpf (0-5)
[2024-04-29] MEDS: INSULIN REGULAR 100 UNIT/ML VIAL (IM/SQ) SQ ONE (14:07)
--- NOTE | 2024-04-29 14:22 | XR ---
EXAMINATION TYPE: XR chest 2V DATE OF EXAM: 04/29/2024 2:03 PM COMPARISON: 08/26/2023 CLINICAL INDICATION: Female, 59 years old with history of Weakness, TECHNIQUE: XR chest 2V view(s) obtained. FINDINGS: The heart size is normal. The pulmonary vasculature is normal. The lungs are clear. IMPRESSION: 1. No acute pulmonary process. [facility], , 04/29/2024 2:19 PM
[2024-04-29 14:44] LABS: Glucose,Whole Blood 362 mg/dL (70-110)
[2024-04-29 15:40] LABS: Glucose,Whole Blood 276 mg/dL (70-110)
--- NOTE | 2024-04-29 15:51 | ED ---
Weakness HPI - General Chief complaint: Weakness Stated complaint: blood sugar high, lathargic, Time Seen by Provider: 04/29/24 12:05 Source: patient Mode of arrival: ambulatory Limitations: no limitations - History of Present Illness Initial comments: 59-year-old female who presents emergency department reporting weakness for the past few days. Patient states that she has had fatigue and some blurred vision. Also reports to increased thirst and increased urination. Patient did check her sugars at home which were greater than 600. Patient denies any causes for her high blood sugars. When I questioned the patient about her medications she does admit that she did take her NovoLog last night. She also admits that she is supposed to take Mounjaro weekly however her pharmacy has been out of this medication so she has also skipped this medication. Patient denies history of DKA. No chest pain or difficulty breathing. No fevers. Denies any headaches or visual changes. No lateralizing weakness. No back or flank pain. No other alleviating, precipitating or modifying factors - Related Data Home Medications Medication Instructions Recorded Confirmed Omeprazole 20 mg PO BID 11/19/15 08/26/23 Metoprolol Succinate [Metoprolol 25 mg PO HS 08/26/23 08/26/23 Succinate ER] Pregabalin [Lyrica] 150 mg PO BID 08/26/23 08/26/23 Tirzepatide [Mounjaro] 7.5 mg SQ BISWAS 08/26/23 08/26/23 Venlafaxine HCl [Effexor XR] 150 mg PO DAILY 08/26/23 08/26/23 Previous Rx's Medication Instructions Recorded Aspirin EC [Ecotrin Low Dose] 81 mg PO DAILY #30 tab 08/29/23 Atorvastatin [Lipitor] 40 mg PO DAILY #30 tab 08/29/23 Cephalexin [Keflex] 500 mg PO BID #4 cap 08/29/23 Clopidogrel [Plavix] 75 mg PO DAILY #21 tablet 08/29/23 Insulin Glargine,Hum.rec.anlog 22 units SQ DAILY #2 each 08/29/23 [Lantus Solostar Pen] Allergies Allergy/AdvReac Type Severity Reaction Status Date / Time Antihistamines - Piperazine Allergy Rash/Hives Verified 04/29/24 11:43 Review of Systems ROS Statement: Those systems with pertinent positive or pertinent negative responses have been documented in the HPI. ROS Other: All systems not noted in ROS Statement are negative. Past Medical History Past Medical History: Diabetes Mellitus, GERD/Reflux, Hyperlipidemia, Hypertension, Sleep Apnea/CPAP/BIPAP Additional Past Medical History / Comment(s): urinary stress incontinence History of Any Multi-Drug Resistant Organisms: None Reported Past Surgical History: Appendectomy, Heart Catheterization, Orthopedic Surgery, Tonsillectomy Additional Past Surgical History / Comment(s): rt shoulder arthroscopic, rt foot surgery for plantar facitis Past Anesthesia/Blood Transfusion Reactions: Previous Problems w/ Anesthesia Additional Past Anesthesia/Blood Transfusion Reaction / Comment(s): slow to wake up Past Psychological History: Anxiety, Depression Past Alcohol Use History: Daily Past Drug Use History: None Reported - Past Family History Mother Family Medical History: Coronary Artery Disease (CAD) Brother(s) Family Medical History: Cancer, Coronary Artery Disease (CAD) Additional Family Medical History / Comment(s): bone cancer General Exam Limitations: no limitations General appearance: alert, in no apparent distress Head exam: Present: atraumatic, normocephalic, normal inspection Eye exam: Present: normal appearance, PERRL, EOMI. Absent: scleral icterus, conjunctival injection, periorbital swelling ENT exam: Present: normal exam, mucous membranes moist Neck exam: Present: normal inspection. Absent: tenderness, meningismus, lymphadenopathy Respiratory exam: Present: normal lung sounds bilaterally. Absent: respiratory distress, wheezes, rales, rhonchi, stridor Cardiovascular Exam: Present: regular rate, normal rhythm, normal heart sounds. Absent: systolic murmur, diastolic murmur, rubs, gallop, clicks GI/Abdominal exam: Present: soft, normal bowel sounds. Absent: distended, tenderness, guarding, rebound, rigid Extremities exam: Present: normal inspection, full ROM, normal capillary refill. Absent: tenderness, pedal edema, joint swelling, calf tenderness Back exam: Present: normal inspection Neurological exam: Present: alert, oriented X3, CN II-XII intact Psychiatric exam: Present: normal affect, normal mood Skin exam: Present: warm, dry, intact, normal color. Absent: rash Course Vital Signs 04/29/24 04/29/24 04/29/24 11:40 15:23 15:59 Temperature 97.8 F Pulse Rate 75 66 69 Respiratory 20 16 18 Rate Blood Pressure 114/71 116/78 122/65 O2 Sat by Pulse 98 99 99 Oximetry Medical Decision Making - Medical Decision Making Was pt. sent in by a medical professional or institution (, GEMINI, JUNIOR SYSTEMS ANALYST, urgent care, hospital, or long term...) When possible be specific @ -No Did you speak to anyone other than the patient for history (EMS, parent, family, police, friend...)? What history was obtained from this source @ -No Did you review nursing and triage notes (agree or disagree)? Why? @ -I reviewed and agree with nursing and triage notes Were old charts reviewed (outside hosp., previous admission, EMS record, old EKG, old radiological studies, urgent care reports/EKG's, long term records)? Report findings @ -No old charts were reviewed Differential Diagnosis (chest pain, altered mental status, abdominal pain women, abdominal pain men, vaginal bleeding, weakness, fever, dyspnea, syncope, headache, dizziness, GI bleed, back pain, seizure, CVA, palpatations, mental health, musculoskeletal)? @ -Differential Weakness: Hypoglycemia, shock, sepsis, hyponatremia, anemia, infection, SC, ETOH, adverse medicine reaction, overdose, stroke, this is not meant to be an all-inclusive list. EKG interpreted by me (3pts min.). @ -Yes and demonstrates sinus rhythm with rate of 74. PA interval 146. QRS 86. QTc of 416. Inverted T wave V2, aVL. Q wave in lead III and aVF X-rays interpreted by me (1pt min.). @ -None done CT interpreted by me (1pt min.). @ -None done U/S interpreted by me (1pt. min.). @ -None done What testing was considered but not performed or refused? (CT, X-rays, U/S, labs)? Why? @ -None What meds were considered but not given or refused? Why? @ -None Did you discuss the management of the patient with other professionals (professionals i.e. GEMINI Alfonso, JUNIOR SYSTEMS ANALYST, lab, RT, psych nurse, social insurance administrator, drawing box tender, teacher, air defense artillery officer, watch caser)? Give summary @ -No Was smoking cessation discussed for >3mins.? @ -No Was critical care preformed (if so, how long)? @ -No Were there social determinants of health that impacted care today? How? (Homelessness, low income, unemployed, alcoholism, drug addiction, t ransportation, low edu. Level, literacy, decrease access to med. care, longterm, rehab)? @ -Patient's pharmacy has not had her medication in stock Was there de-escalation of care discussed even if they declined (Discuss DNR or withdrawal of care, Hospice)? DNR status @ -No What co-morbidities impacted this encounter? (DM, HTN, Smoking, COPD, CAD, Cancer, CVA, ARF, Chemo, Hep., AIDS, mental health diagnosis, sleep apnea, morbid obesity)? @ -Diabetes mellitus Was patient admitted / discharged? Hospital course, mention meds given and route, prescriptions, significant lab abnormalities, going to OR and other pertinent info. @ -Upon arrival patient seen and evaluated in hallway 21. Thorough history and physical exam was performed. IV access is established and laboratory studies are conducted. Patient does have hyperglycemia. No signs of DKA. she was given 2 L of normal saline and subcutaneous insulin. Patient does have improvement in her blood sugars. I do speak with the watch caser. She is able to push the patient's prescription to the [facility] in the hospital where the Mounjaro is available. At this time the patient is able for discharge home. She will take her insulin as it is instructed. She will pick and shovel man her [place] before she leaves the hospital. She will follow-up in her primary care office and return for any new or worsening symptoms. Patient agreeable plan was discharged in stable condition Undiagnosed new problem with uncertain prognosis? @ -No Drug Therapy requiring intensive monitoring for toxicity (Heparin, Nitro, Insulin, Cardizem)? @ -No Were any procedures done? @ -No Diagnosis/symptom? @ -Acute hyperglycemia, history of diabetes mellitus Acute, or Chronic, or Acute on Chronic? @ -Acute Uncomplicated (without systemic symptoms) or Complicated (systemic symptoms)? @ -Complicated Side effects of treatment? @ -No Exacerbation, Progression, or Severe Exacerbation? @ -No Poses a threat to life or bodily function? How? (Chest pain, USA, SC, pneumonia, PE, COPD, DKA, ARF, appy, cholecystitis, CVA, Diverticulitis, Homicidal, Suicidal, threat to staff... and all critical care pts) @ -No - Lab Data Result diagrams: 04/29/24 13:17 04/29/24 13:17 Lab Results 04/29/24 04/29/24 04/29/24 Range/Units 11:40 13:17 13:17 WBC 8.6 (3.8-10.6) k/uL RBC 5.30 (3.80-5.40) m/uL Hgb 14.3 (11.4-16.0) gm/dL Hct 46.1 H (34.0-46.0) % MCV 87.0 (80.0-100.0) fL MCH 27.0 (25.0-35.0) pg MCHC 31.1 (31.0-37.0) g/dL RDW 13.1 (11.5-15.5) % Plt Count 253 (150-450) k/uL MPV 8.9 Neutrophils % 63 % Lymphocytes % 30 % Monocytes % 3 % Eosinophils % 2 % Basophils % 1 % Neutrophils # 5.4 (1.3-7.7) k/uL Lymphocytes # 2.6 (1.0-4.8) k/uL Monocytes # 0.3 (0-1.0) k/uL Eosinophils # 0.2 (0-0.7) k/uL Basophils # 0.1 (0-0.2) k/uL Hypochromasia Slight PT 11.1 (10.0-12.5) sec INR 1.0 (<1.2) APTT 23.8 (22.0-30.0) sec Sodium (137-145) mmol/L Potassium (3.5-5.1) mmol/L Chloride (98-107) mmol/L Carbon Dioxide (22-30) mmol/L Anion Gap mmol/L BUN (7-17) mg/dL Creatinine (0.52-1.04) mg/dL Est GFR (CKD-EPI)AfAm (>60 ml/min/1.73 sqM) Est GFR (CKD-EPI)NonAf (>60 ml/min/1.73 sqM) Glucose (74-99) mg/dL POC Glucose (mg/dL) >600 H* (70-110) mg/dL POC Glu Water Treatment Technician ID Louis Remington Lactic Ac Sepsis Rflx Plasma Lactic Acid Darrick (0.7-2.0) mmol/L Calcium (8.4-10.2) mg/dL Total Bilirubin (0.2-1.3) mg/dL AST (14-36) U/L ALT (4-34) U/L Alkaline Phosphatase (38-126) U/L Troponin I (0.000-0.034) ng/mL Total Protein (6.3-8.2) g/dL Albumin (3.5-5.0) g/dL Urine Color Urine Appearance (Clear) Urine pH (5.0-8.0) Ur Specific [place] (1.001-1.035) Urine Protein (Negative) Urine Glucose (UA) (Negative) Urine Ketones (Negative) Urine Blood (Negative) Urine Nitrite (Negative) Urine Bilirubin (Negative) Urine Urobilinogen (<2.0) mg/dL Ur Leukocyte Esterase (Negative) Urine RBC (0-5) /hpf Urine WBC (0-5) /hpf Urine Mucus (None) /hpf Acetone, Qual (Negative) 04/29/24 04/29/24 04/29/24 Range/Units 13:17 13:17 13:17 WBC (3.8-10.6) k/uL RBC (3.80-5.40) m/uL Hgb (11.4-16.0) gm/dL Hct (34.0-46.0) % MCV (80.0-100.0) fL MCH (25.0-35.0) pg MCHC (31.0-37.0) g/dL RDW (11.5-15.5) % Plt Count (150-450) k/uL MPV Neutrophils % % Lymphocytes % % Monocytes % % Eosinophils % % Basophils % % Neutrophils # (1.3-7.7) k/uL Lymphocytes # (1.0-4.8) k/uL Monocytes # (0-1.0) k/uL Eosinophils # (0-0.7) k/uL Basophils # (0-0.2) k/uL Hypochromasia PT (10.0-12.5) sec INR (<1.2) APTT (22.0-30.0) sec Sodium 133 L (137-145) mmol/L Potassium 4.6 (3.5-5.1) mmol/L Chloride 95 L (98-107) mmol/L Carbon Dioxide 29 (22-30) mmol/L Anion Gap 9 mmol/L BUN 20 H (7-17) mg/dL Creatinine 0.74 (0.52-1.04) mg/dL Est GFR (CKD-EPI)AfAm >90 (>60 ml/min/1.73 sqM) Est GFR (CKD-EPI)NonAf 89 (>60 ml/min/1.73 sqM) Glucose 482 H (74-99) mg/dL POC Glucose (mg/dL) (70-110) mg/dL POC Glu Water Treatment Technician ID Lactic Ac Sepsis Rflx Plasma Lactic Acid Darrick 2.2 H* (0.7-2.0) mmol/L Calcium 9.8 (8.4-10.2) mg/dL Total Bilirubin 0.4 (0.2-1.3) mg/dL AST 41 H (14-36) U/L ALT 42 H (4-34) U/L Alkaline Phosphatase 176 H (38-126) U/L Troponin I <0.012 (0.000-0.034) ng/mL Total Protein 7.1 (6.3-8.2) g/dL Albumin 4.0 (3.5-5.0) g/dL Urine Color Urine Appearance (Clear) Urine pH (5.0-8.0) Ur Specific [place] (1.001-1.035) Urine Protein (Negative) Urine Glucose (UA) (Negative) Urine Ketones (Negative) Urine Blood (Negative) Urine Nitrite (Negative) Urine Bilirubin (Negative) Urine Urobilinogen (<2.0) mg/dL Ur Leukocyte Esterase (Negative) Urine RBC (0-5) /hpf Urine WBC (0-5) /hpf Urine Mucus (None) /hpf Acetone, Qual Positive (Negative) 04/29/24 04/29/24 04/29/24 Range/Units 13:26 13:46 14:42 WBC (3.8-10.6) k/uL RBC (3.80-5.40) m/uL Hgb (11.4-16.0) gm/dL Hct (34.0-46.0) % MCV (80.0-100.0) fL MCH (25.0-35.0) pg MCHC (31.0-37.0) g/dL RDW (11.5-15.5) % Plt Count (150-450) k/uL MPV Neutrophils % % Lymphocytes % % Monocytes % % Eosinophils % % Basophils % % Neutrophils # (1.3-7.7) k/uL Lymphocytes # (1.0-4.8) k/uL Monocytes # (0-1.0) k/uL Eosinophils # (0-0.7) k/uL Basophils # (0-0.2) k/uL Hypochromasia PT (10.0-12.5) sec INR (<1.2) APTT (22.0-30.0) sec Sodium (137-145) mmol/L Potassium (3.5-5.1) mmol/L Chloride (98-107) mmol/L Carbon Dioxide (22-30) mmol/L Anion Gap mmol/L BUN (7-17) mg/dL Creatinine (0.52-1.04) mg/dL Est GFR (CKD-EPI)AfAm (>60 ml/min/1.73 sqM) Est GFR (CKD-EPI)NonAf (>60 ml/min/1.73 sqM) Glucose (74-99) mg/dL POC Glucose (mg/dL) 362 H (70-110) mg/dL POC Glu Water Treatment Technician ID Mary Perez Lactic Ac Sepsis Rflx Y Plasma Lactic Acid Darrick (0.7-2.0) mmol/L Calcium (8.4-10.2) mg/dL Total Bilirubin (0.2-1.3) mg/dL AST (14-36) U/L ALT (4-34) U/L Alkaline Phosphatase (38-126) U/L Troponin I (0.000-0.034) ng/mL Total Protein (6.3-8.2) g/dL Albumin (3.5-5.0) g/dL Urine Color Colorless Urine Appearance Clear (Clear) Urine pH 6.0 (5.0-8.0) Ur Specific [place] 1.028 (1.001-1.035) Urine Protein Negative (Negative) Urine Glucose (UA) 4+ H (Negative) Urine Ketones Negative (Negative) Urine Blood Negative (Negative) Urine Nitrite Positive H (Negative) Urine Bilirubin Negative (Negative) Urine Urobilinogen <2.0 (<2.0) mg/dL Ur Leukocyte Esterase Negative (Negative) Urine RBC 1 (0-5) /hpf Urine WBC 11 H (0-5) /hpf Urine Mucus Rare H (None) /hpf Acetone, Qual (Negative) 04/29/24 04/29/24 Range/Units 15:38 15:46 WBC (3.8-10.6) k/uL RBC (3.80-5.40) m/uL Hgb (11.4-16.0) gm/dL Hct (34.0-46.0) % MCV (80.0-100.0) fL MCH (25.0-35.0) pg MCHC (31.0-37.0) g/dL RDW (11.5-15.5) % Plt Count (150-450) k/uL MPV Neutrophils % % Lymphocytes % % Monocytes % % Eosinophils % % Basophils % % Neutrophils # (1.3-7.7) k/uL Lymphocytes # (1.0-4.8) k/uL Monocytes # (0-1.0) k/uL Eosinophils # (0-0.7) k/uL Basophils # (0-0.2) k/uL Hypochromasia PT (10.0-12.5) sec INR (<1.2) APTT (22.0-30.0) sec Sodium (137-145) mmol/L Potassium (3.5-5.1) mmol/L Chloride (98-107) mmol/L Carbon Dioxide (22-30) mmol/L Anion Gap mmol/L BUN (7-17) mg/dL Creatinine (0.52-1.04) mg/dL Est GFR (CKD-EPI)AfAm (>60 ml/min/1.73 sqM) Est GFR (CKD-EPI)NonAf (>60 ml/min/1.73 sqM) Glucose (74-99) mg/dL POC Glucose (mg/dL) 276 H (70-110) mg/dL POC Glu Water Treatment Technician ID Mary Perez Lactic Ac Sepsis Rflx Plasma Lactic Acid Darrick 1.3 (0.7-2.0) mmol/L Calcium (8.4-10.2) mg/dL Total Bilirubin (0.2-1.3) mg/dL AST (14-36) U/L ALT (4-34) U/L Alkaline Phosphatase (38-126) U/L Troponin I (0.000-0.034) ng/mL Total Protein (6.3-8.2) g/dL Albumin (3.5-5.0) g/dL Urine Color Urine Appearance (Clear) Urine pH (5.0-8.0) Ur Specific [place] (1.001-1.035) Urine Protein (Negative) Urine Glucose (UA) (Negative) Urine Ketones (Negative) Urine Blood (Negative) Urine Nitrite (Negative) Urine Bilirubin (Negative) Urine Urobilinogen (<2.0) mg/dL Ur Leukocyte Esterase (Negative) Urine RBC (0-5) /hpf Urine WBC (0-5) /hpf Urine Mucus (None) /hpf Acetone, Qual (Negative) Disposition Clinical Impression: Hyperglycemia Disposition: HOME SELF-CARE Condition: Stable Instructions (If sedation given, give patient instructions): Diabetic Hyperglycemia (ED) Additional Instructions: Go to [facility] in [facility] to obtain prescription after discharge from ER. Take the insulin and Mounjaro as you were previously prescribed. Follow up with your doctor in 2-4 days Is patient prescribed a controlled substance at d/c from ED?: No Referrals: Jeff Seals MD [Primary Care Provider] - 1-2 days Time of Disposition: 15:50
[2024-04-29 16:00] VITALS: BP 122/65; PULSE 69; RESP 18
[2024-04-30 20:46] LABS: Glucose,Whole Blood >600 mg/dL (70-110)
== END 2024-04-29 16:01 | disposition home or self-care (01) ==
LOC: EC 11:33
DX: E11.65 Type 2 diabetes mellitus with hyperglycemia (principal); Z88.8 Allergy status to other drugs, medicaments and biological substances
CPT/HCPCS: 36415; 71046; 80053; 81001; 82009; 83605; 84484; 85025; 85610; 85730; 93005; 96360; 96361; 99285

== ENCOUNTER 2024-09-17 18:59 | Emergency (ER) | payer MEDICARE ==
[2024-09-17 19:06] LABS: Glucose,Whole Blood 383 mg/dL (70-110)
--- NOTE | 2024-09-17 19:22 | ED ---
Weakness HPI - General Chief complaint: Nausea/Vomiting/Diarrhea Stated complaint: feels feverish Time Seen by Provider: 09/17/24 19:05 Source: patient, RN notes reviewed Mode of arrival: ambulatory Limitations: no limitations - History of Present Illness Initial comments: This is a 59-year-old female who presents to the emergency department for generalized weakness. Patient states that starting last night she began to feel weak, nauseous, and shaky. States that she feels like she cannot think clearly. Also reports excessive thirst. She does have a history of diabetes and states that her sugars have been in the 400s. While she has nausea she has not had any vomiting. Denies any abdominal pain, chest pain, or shortness of breath. Denies any history of similar symptoms in the past. MD Complaint: generalized weakness - Related Data Home Medications Medication Instructions Recorded Confirmed Omeprazole 20 mg PO BID 11/19/15 08/26/23 Metoprolol Succinate [Metoprolol 25 mg PO HS 08/26/23 08/26/23 Succinate ER] Pregabalin [Lyrica] 150 mg PO BID 08/26/23 08/26/23 Tirzepatide [Mounjaro] 7.5 mg SQ BISWAS 08/26/23 08/26/23 Venlafaxine HCl [Effexor XR] 150 mg PO DAILY 08/26/23 08/26/23 Previous Rx's Medication Instructions Recorded Aspirin EC [Ecotrin Low Dose] 81 mg PO DAILY #30 tab 08/29/23 Atorvastatin [Lipitor] 40 mg PO DAILY #30 tab 08/29/23 Cephalexin [Keflex] 500 mg PO BID #4 cap 08/29/23 Clopidogrel [Plavix] 75 mg PO DAILY #21 tablet 08/29/23 Insulin Glargine,Hum.rec.anlog 22 units SQ DAILY #2 each 08/29/23 [Lantus Solostar Pen] Ondansetron Odt [Zofran Odt] 4 mg PO Q8HR PRN #20 tab 09/17/24 cefuroxime axetiL [Ceftin] 500 mg PO BID 10 Days #20 tab 09/17/24 Allergies Allergy/AdvReac Type Severity Reaction Status Date / Time Antihistamines - Piperazine Allergy Rash/Hives Verified 04/29/24 11:43 Review of Systems ROS Statement: Those systems with pertinent positive or pertinent negative responses have been documented in the HPI. ROS Other: All systems not noted in ROS Statement are negative. Past Medical History Past Medical History: Diabetes Mellitus, GERD/Reflux, Hyperlipidemia, Hypertension, Sleep Apnea/CPAP/BIPAP Additional Past Medical History / Comment(s): urinary stress incontinence History of Any Multi-Drug Resistant Organisms: None Reported Past Surgical History: Appendectomy, Heart Catheterization, Orthopedic Surgery, Tonsillectomy Additional Past Surgical History / Comment(s): rt shoulder arthroscopic, rt foot surgery for plantar facitis Past Anesthesia/Blood Transfusion Reactions: Previous Problems w/ Anesthesia Additional Past Anesthesia/Blood Transfusion Reaction / Comment(s): slow to wake up Past Psychological History: Anxiety, Depression Smoking Status: Current every day smoker Past Alcohol Use History: Daily Past Drug Use History: None Reported - Past Family History Mother Family Medical History: Coronary Artery Disease (CAD) Brother(s) Family Medical History: Cancer, Coronary Artery Disease (CAD) Additional Family Medical History / Comment(s): bone cancer General Exam Limitations: no limitations General appearance: alert, in no apparent distress Head exam: Present: atraumatic, normocephalic, normal inspection Respiratory exam: Present: normal lung sounds bilaterally. Absent: respiratory distress, wheezes, rales, rhonchi, stridor Cardiovascular Exam: Present: regular rate, normal rhythm GI/Abdominal exam: Present: soft, normal bowel sounds. Absent: distended, tenderness, guarding, rebound, rigid Neurological exam: Present: alert, oriented X3, CN II-XII intact Psychiatric exam: Present: normal affect, normal mood Skin exam: Present: warm, dry, intact, normal color. Absent: rash Course Vital Signs 09/17/24 09/17/24 09/17/24 19:01 22:01 23:12 Temperature 99.2 F 97.8 F Pulse Rate 92 64 64 Respiratory 18 18 19 Rate Blood Pressure 112/65 112/43 104/58 O2 Sat by Pulse 95 96 96 Oximetry Medical Decision Making - Medical Decision Making This is a 59 year old female who presents to the emergency department for weakness and nausea. Was pt. sent in by a medical professional or institution? @ -No Did you speak to anyone other than the patient for history? @ -No Did you review nursing and triage notes? @ -Yes, and I agree, it is accurate with regards to the patient's symptoms. Were old charts reviewed? @ -No Differential Diagnosis? @ -Differential Weakness: Hypoglycemia, shock, sepsis, hyponatremia, anemia, infection, NH, ETOH, adverse medicine reaction, overdose, stroke, this is not meant to be an all-inclusive list. EKG interpreted by me (3pts min.)? @ -EKG interpreted by me demonstrating the following: Sinus rhythm. Ventricular rate 76 bpm, UT interval 149 ms, QRS duration 91 ms, QTc 417 ms. X-rays interpreted by me (1pt min.)? @ -Chest x-ray obtained, my interpretation identifies no localized consolidations or infiltrates. CT interpreted by me (1pt min.)? @ -Not obtained U/S interpreted by me (1pt. min.)? @ -Not obtained What testing was considered but not performed? (CT, X-rays, U/S, labs)? Why? @ -None What meds were considered but not given? Why? @ -None Did you discuss the management of the patient with other professionals? @ -No Did you reconcile home meds? @ -No Was smoking cessation discussed for >3mins.? @ -I discussed smoking cessation for greater than 3 minutes. The risk of smoking were discussed with the patient including but not limited to risks of cancer, stroke, coronary artery disease and COPD. Also discussed with patient were multiple methods of quitting smoking. Lastly we discussed the financial cost of smoking. Was critical care preformed (if so, how long)? @ -No Were there social determinants of health that impacted care today? How? (Homelessness, low income, unemployed, alcoholism, drug addiction, transportation, low edu. Level, literacy, decrease access to med. care, assisted, rehab)? @ -No Was there de-escalation of care discussed even if they declined? (Discuss DNR or withdrawal of care, Hospice)? @ -No What co-morbidities impacted this encounter? (DM, HTN, Smoking, COPD, CAD, Cancer, CVA, Hep., AIDS, mental health diagnosis, sleep apnea, morbid obesity)? @ -DM, alcoholism, smoking Was patient admitted / discharged? @ -Discharged. Lab work demonstrates mild leukocytosis with a white blood cell count of 10.48. She is also hyperglycemic with a glucose of 356. However, she is not acidotic and acetone was negative. Magnesium slightly low at 1.5. She was initially given 2 L IV fluids with Zofran. 400 mg of magnesium oxide and 1 g of magnesium sulfate administered. COVID, influenza, and RSV testing negativ e. Urinalysis consistent with infection and urine was sent for culture. Chest x-ray reveals no acute process. After the 2 L of IV fluids her sugar improved to 288. 2 g of ceftriaxone administered in the emergency department for the UTI and a prescription for cefuroxime was provided along with Zofran for further symptomatic management. Patient discharged home in stable condition and advised to have close follow-up with her PCP. Case discussed with ED attending Dr. Walker. Return precautions reviewed in depth, the patient is instructed to return to the emergency department with any new, worsening, or concerning symptoms. Patient verbalized understanding. Undiagnosed new problem with uncertain prognosis? @ -None Drug Therapy requiring intensive monitoring for toxicity (Heparin, Nitro, Insulin, Cardizem)? @ -None Were any procedures done? @ -None Diagnosis/symptom? @ -UTI, nausea and vomiting, hyperglycemia Acute, or Chronic, or Acute on Chronic? @ -Acute Uncomplicated (without systemic symptoms) or Complicated (systemic symptoms)? @ -Uncomplicated Side effects of treatment? @ -None Exacerbation, Progression, or Severe Exacerbation] @ -Not applicable Poses a threat to life or bodily function? @ -No - Lab Data Result diagrams: 09/17/24 19:31 09/17/24 19:31 Lab Results 09/17/24 09/17/24 09/17/24 Range/Units 19:05 19:31 19:31 WBC 10.48 H (4.50-10.00) 10*3/uL RBC 5.08 (4.10-5.20) 10*6/uL Hgb 14.4 (12.0-15.0) g/dL Hct 42.6 (37.2-46.3) % MCV 83.9 (80.0-97.0) fL MCH 28.3 (27.0-32.0) pg MCHC 33.8 (32.0-37.0) g/dL Plt Count 133 L (140-440) 10*3/uL MPV 12.0 (9.5-12.2) fL Immature Gran % (Auto) 0.6 % Neutrophils % 84.3 % Lymphocytes % 9.4 % Monocytes % 5.3 % Eosinophils % 0.1 % Basophils % 0.3 % Immature Gran # 0.06 H (0.00-0.04) 10*3/uL Neutrophils # 8.84 H (1.80-7.70) 10*3/uL Lymphocytes # 0.98 (0.90-5.00) 10*3/uL Monocytes # 0.56 (0.20-1.00) 10*3/uL Eosinophils # 0.01 L (0.04-0.35) 10*3/uL Basophils # 0.03 (0.00-0.10) 10*3/uL VBG pH (7.31-7.41) VBG pCO2 (37-51) mmHg VBG HCO3 (24-28) mmol/L Sodium 131 L (137-145) mmol/L Potassium 3.8 (3.5-5.1) mmol/L Chloride 99 (98-107) mmol/L Carbon Dioxide 22 (22-30) mmol/L Anion Gap 10 mmol/L BUN 12 (7-17) mg/dL Creatinine 0.80 (0.52-1.04) mg/dL Est GFR (CKD-EPI)AfAm >90 (>60 ml/min/1.73 sqM) Est GFR (CKD-EPI)NonAf 81 (>60 ml/min/1.73 sqM) Glucose 356 H (74-99) mg/dL POC Glucose (mg/dL) 383 H (70-110) mg/dL POC Glu [employer] ID Froilan Martinez Plasma Lactic Acid Darrick (0.7-2.0) mmol/L Calcium 8.9 (8.4-10.2) mg/dL Phosphorus 3.0 (2.5-4.5) mg/dL Magnesium 1.5 L (1.6-2.3) mg/dL Total Bilirubin 0.8 (0.2-1.3) mg/dL AST 33 (14-36) U/L ALT 36 H (4-34) U/L Alkaline Phosphatase 127 H (38-126) U/L Total Protein 6.3 (6.3-8.2) g/dL Albumin 3.8 (3.5-5.0) g/dL Urine Color Urine Appearance (Clear) Urine pH (5.0-8.0) Ur Specific [place] (1.001-1.035) Urine Protein (Negative) Urine Glucose (UA) (Negative) Urine Ketones (Negative) Urine Blood (Negative) Urine Nitrite (Negative) Urine Bilirubin (Negative) Urine Urobilinogen (<2.0) mg/dL Ur Leukocyte Esterase (Negative) Urine RBC (0-5) /hpf Urine WBC (0-5) /hpf Urine WBC Clumps (None) /hpf Ur Squamous Epith Cells (0-4) /hpf Urine Bacteria (None) /hpf Urine Mucus (None) /hpf Serum Alcohol <10 mg/dL Acetone, Qual Negative (Negative) Influenza Type A (PCR) (Not Detectd) Influenza Type B (PCR) (Not Detectd) RSV (PCR) (Not Detectd) SARS-CoV-2 (PCR) (Not Detectd) 09/17/24 09/17/24 09/17/24 Range/Units 19:31 19:31 19:31 WBC (4.50-10.00) 10*3/uL RBC (4.10-5.20) 10*6/uL Hgb (12.0-15.0) g/dL Hct (37.2-46.3) % MCV (80.0-97.0) fL MCH (27.0-32.0) pg MCHC (32.0-37.0) g/dL Plt Count (140-440) 10*3/uL MPV (9.5-12.2) fL Immature Gran % (Auto) % Neutrophils % % Lymphocytes % % Monocytes % % Eosinophils % % Basophils % % Immature Gran # (0.00-0.04) 10*3/uL Neutrophils # (1.80-7.70) 10*3/uL Lymphocytes # (0.90-5.00) 10*3/uL Monocytes # (0.20-1.00) 10*3/uL Eosinophils # (0.04-0.35) 10*3/uL Basophils # (0.00-0.10) 10*3/uL VBG pH 7.48 H (7.31-7.41) VBG pCO2 33 L (37-51) mmHg VBG HCO3 24 (24-28) mmol/L Sodium (137-145) mmol/L Potassium (3.5-5.1) mmol/L Chloride (98-107) mmol/L Carbon Dioxide (22-30) mmol/L Anion Gap mmol/L BUN (7-17) mg/dL Creatinine (0.52-1.04) mg/dL Est GFR (CKD-EPI)AfAm (>60 ml/min/1.73 sqM) Est GFR (CKD-EPI)NonAf (>60 ml/min/1.73 sqM) Glucose (74-99) mg/dL POC Glucose (mg/dL) (70-110) mg/dL POC Glu [employer] ID Plasma Lactic Acid Darrick 2.0 (0.7-2.0) mmol/L Calcium (8.4-10.2) mg/dL Phosphorus (2.5-4.5) mg/dL Magnesium (1.6-2.3) mg/dL Total Bilirubin (0.2-1.3) mg/dL AST (14-36) U/L ALT (4-34) U/L Alkaline Phosphatase (38-126) U/L Total Protein (6.3-8.2) g/dL Albumin (3.5-5.0) g/dL Urine Color Urine Appearance (Clear) Urine pH (5.0-8.0) Ur Specific [place] (1.001-1.035) Urine Protein (Negative) Urine Glucose (UA) (Negative) Urine Ketones (Negative) Urine Blood (Negative) Urine Nitrite (Negative) Urine Bilirubin (Negative) Urine Urobilinogen (<2.0) mg/dL Ur Leukocyte Esterase (Negative) Urine RBC (0-5) /hpf Urine WBC (0-5) /hpf Urine WBC Clumps (None) /hpf Ur Squamous Epith Cells (0-4) /hpf Urine Bacteria (None) /hpf Urine Mucus (None) /hpf Serum Alcohol mg/dL Acetone, Qual (Negative) Influenza Type A (PCR) Not Detected (Not Detectd) Influenza Type B (PCR) Not Detected (Not Detectd) RSV (PCR) Not Detected (Not Detectd) SARS-CoV-2 (PCR) Not Detected (Not Detectd) 09/17/24 09/17/24 Range/Units 20:27 21:31 WBC (4.50-10.00) 10*3/uL RBC (4.10-5.20) 10*6/uL Hgb (12.0-15.0) g/dL Hct (37.2-46.3) % MCV (80.0-97.0) fL MCH (27.0-32.0) pg MCHC (32.0-37.0) g/dL Plt Count (140-440) 10*3/uL MPV (9.5-12.2) fL Immature Gran % (Auto) % Neutrophils % % Lymphocytes % % Monocytes % % Eosinophils % % Basophils % % Immature Gran # (0.00-0.04) 10*3/uL Neutrophils # (1.80-7.70) 10*3/uL Lymphocytes # (0.90-5.00) 10*3/uL Monocytes # (0.20-1.00) 10*3/uL Eosinophils # (0.04-0.35) 10*3/uL Basophils # (0.00-0.10) 10*3/uL VBG pH (7.31-7.41) VBG pCO2 (37-51) mmHg VBG HCO3 (24-28) mmol/L Sodium (137-145) mmol/L Potassium (3.5-5.1) mmol/L Chloride (98-107) mmol/L Carbon Dioxide (22-30) mmol/L Anion Gap mmol/L BUN (7-17) mg/dL Creatinine (0.52-1.04) mg/dL Est GFR (CKD-EPI)AfAm (>60 ml/min/1.73 sqM) Est GFR (CKD-EPI)NonAf (>60 ml/min/1.73 sqM) Glucose (74-99) mg/dL POC Glucose (mg/dL) 288 H (70-110) mg/dL POC Glu [employer] PATIENCE Syeda Guerrero Plasma Lactic Acid [place] (0.7-2.0) mmol/L Calcium (8.4-10.2) mg/dL Phosphorus (2.5-4.5) mg/dL Magnesium (1.6-2.3) mg/dL Total Bilirubin (0.2-1.3) mg/dL AST (14-36) U/L ALT (4-34) U/L Alkaline Phosphatase (38-126) U/L Total Protein (6.3-8.2) g/dL Albumin (3.5-5.0) g/dL Urine Color Light Yellow Urine Appearance Cloudy H (Clear) Urine pH 5.5 (5.0-8.0) Ur Specific [place] 1.023 (1.001-1.035) Urine Protein Trace H (Negative) Urine Glucose (UA) 4+ H (Negative) Urine Ketones 1+ H (Negative) Urine Blood Small H (Negative) Urine Nitrite Positive H (Negative) Urine Bilirubin Negative (Negative) Urine Urobilinogen <2.0 (<2.0) mg/dL Ur Leukocyte Esterase Large H (Negative) Urine RBC 7 H (0-5) /hpf Urine WBC >182 H (0-5) /hpf Urine WBC Clumps Many H (None) /hpf Ur Squamous Epith Cells 3 (0-4) /hpf Urine Bacteria Many H (None) /hpf Urine Mucus Rare H (None) /hpf Serum Alcohol mg/dL Acetone, Qual (Negative) Influenza Type A (PCR) (Not Detectd) Influenza Type B (PCR) (Not Detectd) RSV (PCR) (Not Detectd) SARS-CoV-2 (PCR) (Not Detectd) - Radiology Data Radiology results: report reviewed, image reviewed Disposition Clinical Impression: UTI (urinary tract infection), Nausea & vomiting, Hyperglycemia, Nicotine dependence Disposition: HOME SELF-CARE Instructions (If sedation given, give patient instructions): Urinary Tract Infection in Women (ED), Acute Nausea and Vomiting (ED) Additional Instructions: Return to the emergency department with any new, worsening, or concerning symptoms. Take the antibiotic as prescribed for 10 days. Take the Zofran up to every 8 hours as needed for nausea and vomiting. Follow up with your primary care provider in 1-2 days. Prescriptions: cefuroxime axetiL [Ceftin] 500 mg PO BID 10 Days #20 tab Ondansetron Odt [Zofran Odt] 4 mg PO Q8HR PRN #20 tab PRN Reason: Nausea And Vomiting Is patient prescribed a controlled substance at d/c from ED?: No Referrals: Jeff Seals MD [Primary Care Provider] - 1-2 days Time of Disposition: 21:43
[2024-09-17] MEDS: SODIUM CHLORIDE 0.9% 1,000 ML IV SCH (19:39)
[2024-09-17] MEDS: ONDANSETRON 4 MG/2 ML VIAL IVP STA (19:39)
[2024-09-17 19:41] LABS: Basophils # (A) 0.03 10*3/uL (0.00-0.10); Basophils % (A) 0.3 %; Eosinophils # (A) 0.01 10*3/uL (0.04-0.35); Eosinophils % (A) 0.1 %; HCT 42.6 % (37.2-46.3); HGB 14.4 g/dL (12.0-15.0); Lymphocytes # (A) 0.98 10*3/uL (0.90-5.00); Lymphocytes % (A) 9.4 %; MCH 28.3 pg (27.0-32.0); MCHC 33.8 g/dL (32.0-37.0); MCV 83.9 fL (80.0-97.0); Monocytes # (A) 0.56 10*3/uL (0.20-1.00); Monocytes % (A) 5.3 %; Neutrophils # (A) 8.84 10*3/uL (1.80-7.70); Neutrophils % (A) 84.3 %; Platelet Count 133 10*3/uL (140-440); RBC 5.08 10*6/uL (4.10-5.20); RDW 13.5 % (11.5-14.5); VBG HCO3 24.0 mmol/L (24-28); VBG PCO2 33.0 mmHg (37-51); VBG PH 7.48 (7.31-7.41); WBC 10.48 10*3/uL (4.50-10.00)
[2024-09-17 19:53] LABS: ALT 36 U/L (4-34); AST 33 U/L (14-36); African American GFR (CKD) >90 (>60 ml/min/1.73 sqM); Albumin 3.8 g/dL (3.5-5.0); Alkaline Phosphatase 127 U/L (38-126); Anion Gap 10 mmol/L; Blood Urea Nitrogen 12 mg/dL (7-17); Calcium 8.9 mg/dL (8.4-10.2); Carbon Dioxide 22 mmol/L (22-30); Chloride 99 mmol/L (98-107); Glucose 356 mg/dL (74-99); Magnesium 1.5 mg/dL (1.6-2.3); Non-African American GFR(CKD) 81 (>60 ml/min/1.73 sqM); Potassium 3.8 mmol/L (3.5-5.1); Sodium 131 mmol/L (137-145); Total Protein 6.3 g/dL (6.3-8.2)
[2024-09-17 20:16] LABS: RSV Not Detected (Not Detectd)
[2024-09-17] MEDS: MAGNESIUM SULFATE-D5W PMX 1 GM in DEXTROSE/WATER 1 100ML.BAG IVPB SCH (20:23)
[2024-09-17] MEDS: MAGNESIUM OXIDE 400 MG TAB PO STA (20:26)
[2024-09-17 20:46] LABS: Bacteria,Urine Many /hpf; Bilirubin,Urine Negative (Negative); Blood,Urine Small (Negative); Color,Urine Light Yellow; Glucose,Urine (UA) 4+ (Negative); Ketones,Urine 1+ (Negative); Leukocyte Esterase,Urine Large (Negative); Mucus,Urine Rare /hpf; Nitrite,Urine Positive (Negative); PH, Urine 5.5 (5.0-8.0); Protein,Urine Trace (Negative); RBC,Urine 7 /hpf (0-5); Specific Gravity,Urine 1.023 (1.001-1.035); Squamous Epithelial Cell,Urine 3 /hpf (0-4); Urobilinogen,Urine <2.0 mg/dL (<2.0); WBC,Urine >182 /hpf (0-5)
--- NOTE | 2024-09-17 21:10 | XR ---
EXAMINATION TYPE: XR chest 2V DATE OF EXAM: 09/17/2024 9:06 PM COMPARISON: Chest radiographs from 04/29/2024 TECHNIQUE: XR chest 2V Frontal and lateral views of the chest. CLINICAL INDICATION:Female, 59 years old with history of Weakness; FINDINGS: Lungs/Pleura: There is no evidence of pleural effusion, focal consolidation, or pneumothorax. Chroni c elevation of the right hemidiaphragm. Pulmonary vascularity: Unremarkable. Heart/mediastinum: Cardiomediastinal silhouette is unremarkable. Musculoskeletal: No acute osseous pathology. IMPRESSION: No acute cardiopulmonary disease/process. [facility], , 09/17/2024 9:08 PM
[2024-09-17 21:33] LABS: Glucose,Whole Blood 288 mg/dL (70-110)
[2024-09-17 22:03] VITALS: PULSE 64
[2024-09-17] MEDS: cefTRIAXone IN SWFI 1,000 MG/10 ML SYRINGE IVP STA (22:04)
[2024-09-17] MEDS: ONDANSETRON 4 MG ODT STARTER PACK 2 TAB BTL PO STA (22:04)
[2024-09-17] MEDS: INSULIN REGULAR 100 UNIT/ML VIAL (IV) IV ONE (22:10)
[2024-09-17 23:13] VITALS: BP 104/58; RESP 19; TEMP 97.8
== END 2024-09-17 23:13 | disposition home or self-care (01) ==
LOC: EC 18:59
DX: N39.0 Urinary tract infection, site not specified (principal); E11.65 Type 2 diabetes mellitus with hyperglycemia; F10.20 Alcohol dependence, uncomplicated; F17.200 Nicotine dependence, unspecified, uncomplicated; Z88.8 Allergy status to other drugs, medicaments and biological substances
CPT/HCPCS: 36415; 93005; 80053; 82803; 82009; 83605; 83735; 84100; 85025; 81001; 80320; 87086; 87636; 71046; 99284; 96365; 96366 ×2; 96361; 96375; J2405; J0696; J3475; S0119